=== PATIENT | male | born 1940 | race Caucasian/White ===

== ENCOUNTER → 2018-03-02 | Outpatient (CLI) | payer MEDICARE ==
--- NOTE | 2018-03-02 11:20 | US ---
EXAMINATION TYPE: US duplex aorta DATE OF EXAM: 03/02/2018 COMPARISON: US 2009, MRI Lumbar CLINICAL HISTORY: Z13.9 Encounter for screening, unspecified; controlled HTN; prior CABG EXAM MEASUREMENTS: Abdominal Aorta: Proximal: 2.0cm Transverse Mid: 1.8cm A/P Distal: 4.8cm L x 4.1cm W x 3.4cm H Bifurcation: 1.2cm A/P right DARREN; 1.1cm A/P left DARREN Intimal thickening is noted distal aorta and into left DARREN. Previous ultrasound measurement AP dimension was 2.4 cm in 2009. AP dimension based on the MRI lumbar spine is 3.1 cm 2012. IMPRESSION: 1. Distal abdominal aortic aneurysm slightly increasing with an AP dimension of 3.4 cm and a of width 4.1 cm. This appears to terminate bifurcation.
== END | disposition home or self-care (01) ==
LOC: RADUSWWP 07:38
PROVIDERS: ATTEND Family Medicine
DX: I71.4 Abdominal aortic aneurysm, without rupture (principal)
CPT/HCPCS: 93979

== ENCOUNTER → 2019-01-25 | Outpatient (CLI) | payer MEDICARE ==
--- NOTE | 2019-01-25 09:21 | US ---
EXAMINATION TYPE: US duplex aorta DATE OF EXAM: 01/25/2019 COMPARISON: 11/14/2009 and 03/02/2018 CLINICAL HISTORY: I71.4 AAA. Hx of AAA in distal Aorta. HTN controlled with meds. Hx of open heart surgery. Nonsmoker. Normal cholesterol. EXAM MEASUREMENTS: Abdominal Aorta: Proximal: 2.2 x 2.6 cm Mid: 1.7 x 1.7 cm Distal: 1.4 x 1.8 cm Bifurcation: Right-1.5 x 1.0 Left- 1.5 x 0.8 AAA seen between mid-distal portion of Aorta= 5.1 x 3.9 x 3.3 cm. This previously measured 2.4 cm in anterior posterior dimension 2009 and 3.4 cm in anterior posterior dimension on the exam of 03/02/2018 . IMPRESSION: Distal abdominal aortic aneurysm, stable in size from the prior of 03/02/2018, increased f rom 2009.
== END | disposition home or self-care (01) ==
LOC: RADUSWWP 08:45
PROVIDERS: ATTEND Family Medicine
DX: I71.4 Abdominal aortic aneurysm, without rupture (principal)
CPT/HCPCS: 93979

== ENCOUNTER → 2019-04-21 | Outpatient (CLI) | payer MEDICARE ==
--- NOTE | 2019-04-21 13:49 | CT ---
EXAMINATION TYPE: CT angio abdomen pelvis DATE OF EXAM: 04/21/2019 COMPARISON: Aorta RESULT November 25, 2018 HISTORY: Follow up aneurysm per patient CT DLP: 791.2 mGycm, Automated Exposure Control for Dose Reduction was Utilized. CONTRAST: CTA scan of the abdomen and pelvis is performed with oral and with IV Contrast, patient injected with 100 mL of Isovue 370. Three-D reconstructed images are created by independent workstation and review ed. FINDINGS: VASCULAR: There is a patent celiac artery, SMA, bilateral single renal arteries and GIOVANNY identified. T here is infrarenal abdominal aortic aneurysm over roughly a 4 to 5 cm length measuring 3.8 x 3.7 cm a xial image 47. There is moderate concentric noncalcified plaque along anterior left margin causing shayne men diameter narrowing roughly 35 %. Aneurysm does not extend into iliac arteries. Moderate mixed kellee que extends into common iliac arteries without aneurysmal change. There are patent internal/external iliac arteries without significant plaque or stenosis. There are patent bifurcating superficial and d eep femoral arteries without significant plaque or stenosis. No additional aneurysm is seen. LUNG BASES: No significant abnormality is appreciated. LIVER/GB: Liver is diffusely low-density consistent with fatty infiltration. PANCREAS: No significant abnormality is seen. SPLEEN: No significant abnormality is seen. ADRENALS: No significant abnormality is seen. KIDNEYS: There are few simple appearing thin-walled cysts medially in the left kidney.. BOWEL: Sigmoid colonic diverticulosis. PROSTATE/SEMINAL VESICLES: No gross abnormality seen. LYMPH NODES: No greater than 1cm abdominal or pelvic lymph nodes are appreciated. OSSEOUS STRUCTURES: Moderate disc space narrowing L1-L2 level with mild to moderate anterior and post erior spurring. Posterior spur disc complex effaces anterior thecal sac. OTHER: No significant additional abnormality is seen. IMPRESSION: Confirmation of 3.8 cm aneurysm distal abdominal aorta correlates with recent ultrasound.
== END | disposition home or self-care (01) ==
LOC: RADCTMAIN 10:59
PROVIDERS: ATTEND Surgery
DX: I71.4 Abdominal aortic aneurysm, without rupture (principal)
CPT/HCPCS: 82565; 84520; 36415; 74174; Q9967

== ENCOUNTER → 2019-08-23 | Outpatient (CLI) | payer MEDICARE ==
--- NOTE | 2019-08-23 12:25 | CT ---
EXAMINATION TYPE: CT sinus wo con DATE OF EXAM: 08/23/2019 COMPARISON: None HISTORY: Sinus congestion, drainage and difficulty breathing x several months. CT DLP: [address] of the paranasal sinuses was performed in the axial and coronal planes. Bone and soft tissue settings are submitted. There is moderate mucosal thickening involving the ethmoid air cells and to a lesser extent the maxil lidia sinuses. Frontal sinuses well aerated. Minimal mucosal thickening of the sphenoid sinus. Obstruc tion left sided ostiomeatal unit that with partial obstruction right right-sided ostiomeatal unit. The nasal septum is midline. No bony destructive changes are seen within the field of view. IMPRESSION: Chronic sinusitis as discussed. Underlying polyposis is difficult to exclude. Correlate clinically.
== END ==
LOC: RADCTMAIN 11:54
PROVIDERS: ATTEND Otolaryngology
DX: J32.9 Chronic sinusitis, unspecified (principal)
CPT/HCPCS: 70486

== ENCOUNTER 2021-04-29 13:25 | Emergency (ER) | payer MEDICARE ==
[2021-04-29 13:32] VITALS: TEMP 98.3
--- NOTE | 2021-04-29 13:56 | ED ---
General Adult HPI - General Chief complaint: Dizziness Stated complaint: chest pain Time Seen by Provider: 04/29/21 13:43 Source: patient, RN notes reviewed, old records reviewed Mode of arrival: wheelchair Limitations: no limitations - History of Present Illness Initial comments: 80-year-old male history of coronary artery disease status post CABG presenting with upper back and bilateral arm heaviness and weakness. Patient had 3 separate episodes while golfing when he felt the eye heaviness across his upper back. This was not a pain specifically. He states that it lasted several minutes and improved with rest. No central chest pain. No vomiting or abdominal pain. - Related Data Home Medications Medication Instructions Recorded Confirmed Metoprolol Succinate [Toprol XL] 100 mg PO DAILY 07/03/14 04/29/21 Rosuvastatin Calcium [Crestor] 20 mg PO DAILY 07/03/14 04/29/21 Aspirin EC [Ecotrin Low Dose] 81 mg PO DAILY 04/29/21 04/29/21 Fluticasone Nasal Cisco [Flonase 2 spr EA NOSTRIL DAILY PRN 04/29/21 04/29/21 Nasal Cisco] Nitroglycerin Sl Tabs [Nitrostat] 0.4 mg SL Q5M PRN 04/29/21 04/29/21 Omeprazole 20 mg PO DAILY 04/29/21 04/29/21 amLODIPine [Norvasc] 5 mg PO DAILY 04/29/21 04/29/21 calcium polycarbophiL [Fibercon] 625 mg PO DAILY 04/29/21 04/29/21 Allergies Allergy/AdvReac Type Severity Reaction Status Date / Time cat dander Allergy Allergy Verified 04/29/21 16:15 testing grass pollen Allergy Allergy Verified 04/29/21 16:15 testing tree and shrub pollen Allergy Allergy Verified 04/29/21 16:15 testing Penicillins AdvReac Rash/Hives Verified 04/29/21 16:15 BIRDS Allergy Allergy Uncoded 04/29/21 16:15 testing Review of Systems ROS Statement: Those systems with pertinent positive or pertinent negative responses have been documented in the HPI. ROS Other: All systems not noted in ROS Statement are negative. Past Medical History Past Medical History: GERD/Reflux, Hypertension, Pneumonia Additional Past Medical History / Comment(s): injured left foot- has boot on, hx ulcer, abdominal pain, hx ulcer History of Any Multi-Drug Resistant Organisms: None Reported Past Surgical History: Appendectomy, Coronary Bypass/CABG, Heart Catheterization Additional Past Surgical History / Comment(s): CABG 2001, Past Anesthesia/Blood Transfusion Reactions: No Reported Reaction Past Psychological History: No Psychological Hx Reported Smoking Status: Never smoker Past Alcohol Use History: Rare Past Drug Use History: None Reported - Past Family History Mother Family Medical History: Cancer General Exam Limitations: no limitations General appearance: alert, in no apparent distress Head exam: Present: atraumatic, normocephalic Eye exam: Present: normal appearance, PERRL ENT exam: Present: normal exam Neck exam: Present: normal inspection. Absent: tenderness, meningismus Respiratory exam: Present: normal lung sounds bilaterally. Absent: respiratory distress, wheezes Cardiovascular Exam: Present: regular rate, normal rhythm GI/Abdominal exam: Present: soft, distended. Absent: tenderness, guarding Extremities exam: Present: normal inspection, normal capillary refill. Absent: pedal edema Neurological exam: Present: alert, oriented X3, CN II-XII intact. Absent: motor sensory deficit Psychiatric exam: Present: normal affect, normal mood Skin exam: Present: warm, dry, intact. Absent: cyanosis, diaphoretic Course Vital Signs 04/29/21 04/29/21 04/29/21 13:29 13:46 14:00 Temperature 98.3 F Pulse Rate 64 60 Respiratory 20 44 H 15 Rate Blood Pressure 123/74 114/78 O2 Sat by Pulse 96 96 Oximetry 04/29/21 04/29/21 14:30 15:00 Temperature Pulse Rate 60 Respiratory 12 Rate Blood Pressure 114/78 143/72 O2 Sat by Pulse 97 Oximetry EKG Findings - EKG Comments: EKG Findings:: EKG: Normal sinus rhythm, rate of 61, WA interval 170, QRS duration 90, QTC 380, no ST segment elevation. Medical Decision Making - Medical Decision Making 80-year-old male presenting with an episode of upper back heaviness. Patient was concerned that this may be related to his heart. He had no central chest pain. No vomiting or diaphoresis. He had 3 total episodes prior to arrival. EKG was sinus rhythm without ST segment elevation. I did perform chest x-ray which is negative for you process, head CT negative for intracranial hemorrhage or mass effect. Normal CBC, normal CMP, negative troponin. Given this patient's history I did perform a second troponin in the emergency department at his request. He did not want to be admitted. Second troponin is also negative. He will be discharged with return parameters. If anything should change or worsen he should return to the emergency department. - Lab Data Result diagrams: 04/29/21 14:34 04/29/21 14:34 Lab Results 04/29/21 04/29/21 04/29/21 Range/Units 14:34 14:34 14:34 WBC 8.0 (3.8-10.6) k/uL RBC 5.37 (4.30-5.90) m/uL Hgb 16.2 (13.0-17.5) gm/dL Hct 49.4 (39.0-53.0) % MCV 92.0 (80.0-100.0) fL MCH 30.2 (25.0-35.0) pg MCHC 32.8 (31.0-37.0) g/dL RDW 14.7 (11.5-15.5) % Plt Count 176 (150-450) k/uL MPV 8.4 Neutrophils % 53 % Lymphocytes % 34 % Monocytes % 7 % Eosinophils % 2 % Basophils % 1 % Neutrophils # 4.3 (1.3-7.7) k/uL Lymphocytes # 2.8 (1.0-4.8) k/uL Monocytes # 0.5 (0-1.0) k/uL Eosinophils # 0.2 (0-0.7) k/uL Basophils # 0.1 (0-0.2) k/uL PT 10.6 (9.0-12.0) sec INR 1.0 (<1.2) APTT 23.8 (22.0-30.0) sec Sodium 137 (137-145) mmol/L Potassium 4.8 (3.5-5.1) mmol/L Chloride 104 (98-107) mmol/L Carbon Dioxide 23 (22-30) mmol/L Anion Gap 10 mmol/L BUN 25 H (9-20) mg/dL Creatinine 1.29 H (0.66-1.25) mg/dL Est GFR (CKD-EPI)AfAm 60 (>60 ml/min/1.73 sqM) Est GFR (CKD-EPI)NonAf 52 (>60 ml/min/1.73 sqM) Glucose 105 H (74-99) mg/dL Plasma Lactic Acid Adrian (0.7-2.0) mmol/L Calcium 9.5 (8.4-10.2) mg/dL Magnesium 1.9 (1.6-2.3) mg/dL Total Bilirubin 0.2 (0.2-1.3) mg/dL AST 31 (17-59) U/L ALT 24 (4-49) U/L Alkaline Phosphatase 62 (38-126) U/L Troponin I (0.000-0.034) ng/mL Total Protein 7.4 (6.3-8.2) g/dL Albumin 4.3 (3.5-5.0) g/dL 04/29/21 04/29/21 04/29/21 Range/Units 14:34 14:34 16:00 WBC (3.8-10.6) k/uL RBC (4.30-5.90) m/uL Hgb (13.0-17.5) gm/dL Hct (39.0-53.0) % MCV (80.0-100.0) fL MCH (25.0-35.0) pg MCHC (31.0-37.0) g/dL RDW (11.5-15.5) % Plt Count (150-450) k/uL MPV Neutrophils % % Lymphocytes % % Monocytes % % Eosinophils % % Basophils % % Neutrophils # (1.3-7.7) k/uL Lymphocytes # (1.0-4.8) k/uL Monocytes # (0-1.0) k/uL Eosinophils # (0-0.7) k/uL Basophils # (0-0.2) k/uL PT (9.0-12.0) sec INR (<1.2) APTT (22.0-30.0) sec Sodium (137-145) mmol/L Potassium (3.5-5.1) mmol/L Chloride (98-107) mmol/L Carbon Dioxide (22-30) mmol/L Anion Gap mmol/L BUN (9-20) mg/dL Creatinine (0.66-1.25) mg/dL Est GFR (CKD-EPI)AfAm (>60 ml/min/1.73 sqM) Est GFR (CKD-EPI)NonAf (>60 ml/min/1.73 sqM) Glucose (74-99) mg/dL Plasma Lactic Acid Adrian 1.5 (0.7-2.0) mmol/L Calcium (8.4-10.2) mg/dL Magnesium (1.6-2.3) mg/dL Total Bilirubin (0.2-1.3) mg/dL AST (17-59) U/L ALT (4-49) U/L Alkaline Phosphatase (38-126) U/L Troponin I <0.012 <0.012 (0.000-0.034) ng/mL Total Protein (6.3-8.2) g/dL Albumin (3.5-5.0) g/dL Disposition Clinical Impression: Dehydration Disposition: HOME SELF-CARE Condition: Good Instructions (If sedation given, give patient instructions): Dizziness (ED) Is patient prescribed a controlled substance at d/c from ED?: No Referrals: Delio Pascual MD [Primary Care Provider] - 1-2 days Time of Disposition: 17:21
[2021-04-29 14:49] LABS: Basophils # (A) 0.1 k/uL (0-0.2); Basophils % (A) 1 %; Eosinophils # (A) 0.2 k/uL (0-0.7); Eosinophils % (A) 2 %; HCT 49.4 % (39.0-53.0); HGB 16.2 gm/dL (13.0-17.5); Lymphocytes # (A) 2.8 k/uL (1.0-4.8); Lymphocytes % (A) 34 %; MCH 30.2 pg (25.0-35.0); MCHC 32.8 g/dL (31.0-37.0); Mean Platelet Volume 8.4; Monocytes # (A) 0.5 k/uL (0-1.0); Monocytes % (A) 7 %; Neutrophils # (A) 4.3 k/uL (1.3-7.7); Neutrophils % (A) 53 %; Platelet Count 176 k/uL (150-450); RBC 5.37 m/uL (4.30-5.90); RDW 14.7 % (11.5-15.5)
[2021-04-29 14:52] LABS: Albumin 4.3 g/dL (3.5-5.0); Calcium 9.5 mg/dL (8.4-10.2); Magnesium 1.9 mg/dL (1.6-2.3); Potassium 4.8 mmol/L (3.5-5.1); Total Bilirubin 0.2 mg/dL (0.2-1.3); Total Protein 7.4 g/dL (6.3-8.2)
[2021-04-29 14:57] LABS: Partial Thromboplastin Time 23.8 sec (22.0-30.0); Prothrombin Time 10.6 sec (9.0-12.0)
--- NOTE | 2021-04-29 15:10 | XR ---
EXAMINATION TYPE: XR chest 2V DATE OF EXAM: 04/29/2021 COMPARISON: Chest x-ray November 18, 2012 HISTORY: Weakness. TECHNIQUE: Frontal and lateral views of the chest are obtained. FINDINGS: Post-CABG changes with mediastinal clips and sternal wires is redemonstrated. There is swing grinder williams parenchymal change without suspicious new focal air space opacity, pleural effusion, or pneumotho rax seen. The cardiac silhouette size is stable and within normal limits. The osseous structures a re intact. IMPRESSION: Chronic changes without acute pulmonary process. No significant change from prior.
--- NOTE | 2021-04-29 15:12 | CT ---
EXAMINATION TYPE: CT brain wo con DATE OF EXAM: 04/29/2021 HISTORY: Weakness. CT DLP: 1129.4 mGycm. Automated Exposure Control for Dose Reduction was Utilized. TECHNIQUE: CT scan of the head is performed without contrast. COMPARISON: None. FINDINGS: There is no acute intracranial hemorrhage or midline shift identified. There is mild to m oderate diffuse ventricular and sulcal prominence consistent with diffuse age-related cerebral atroph y greatest over the bilateral frontal lobes. There is mild low-attenuation in the periventricular wh ite matter consistent with chronic small vessel ischemic change. Patchy cerumen in the deep bilateral extra auditory canals. Small mucous retention cyst or polyp in the posterior right maxillary sinus. Dependently in opacity in the inferior bilateral frontal sinuses and anterior ethmoid sinuses could r eflect mucosal thickening, prior paranasal sinus surgical change is present. Globes are intact bilate rally. IMPRESSION: No acute intracranial hemorrhage or midline shift. There is mild to moderate diffuse ce rebral atrophy greatest over bilateral frontal lobes and mild chronic small vessel ischemic change no sumit.
[2021-04-29 17:34] VITALS: BP 140/68; PULSE 62; RESP 16
== END 2021-04-29 17:35 | disposition home or self-care (01) ==
LOC: EC 13:25
DX: E86.0 Dehydration (principal); R07.9 Chest pain, unspecified; R53.1 Weakness; I10 Essential (primary) hypertension; I25.10 Atherosclerotic heart disease of native coronary artery without angina pectoris; I25.810 Atherosclerosis of coronary artery bypass graft(s) without angina pectoris; K21.9 Gastro-esophageal reflux disease without esophagitis; Z95.1 Presence of aortocoronary bypass graft; Z88.0 Allergy status to penicillin; Z79.899 Other long term (current) drug therapy; Z91.09 Other allergy status, other than to drugs and biological substances; Z79.82 Long term (current) use of aspirin
CPT/HCPCS: 36415; 70450; 71046; 80053; 83605; 83735; 84484; 85025; 85610; 85730; 93005; 99285

== ENCOUNTER 2023-10-14 13:04 | Inpatient (IN) | payer MEDICARE ==
--- NOTE | 2023-10-14 13:24 | ED ---
General Adult HPI - General Chief complaint: Neuro Symptoms/Deficit Stated complaint: chest pain/poss stroke Time Seen by Provider: 10/14/23 13:12 Source: patient Mode of arrival: ambulatory Limitations: no limitations - History of Present Illness Initial comments: Dictation was produced using [employer] dictation software. please excuse any grammatical, word or spelling errors. Chief Complaint: 83-year-old male brought in with for strokelike symptoms History of Present Illness: Patient is 83-year-old male presents emergency department for strokelike symptoms she has multiple comorbidities including coronary artery disease, hypertension and pneumonia. For the last 7 to 10 days according to patient has been having strokelike symptoms including left- sided weakness along with left facial droop. Patient states he does have some mild chest pressure that has been ongoing for the last 3 to 4 days. No radiation associated with diaphoresis and nausea however. No other exacerbating or mitigating factors that are obvious. Patient denies any history of stroke. States that he is having difficulty walking and using his left upper extremity. Contacted his primary care doctor who instructed patient come straight to the ER. The ROS documented in this emergency department record has been reviewed and confirmed by me. Those systems with pertinent positive or negative responses have been documented in the HPI. All other systems are other negative and/or noncontributory. - Related Data Home Medications Medication Instructions Recorded Confirmed Metoprolol Succinate [Toprol XL] 100 mg PO DAILY 07/03/14 10/14/23 Rosuvastatin Calcium [Crestor] 20 mg PO DAILY 07/03/14 10/14/23 Fluticasone Nasal [place] [Flonase 1 spr EA NOSTRIL BID 04/29/21 10/14/23 Nasal [place]] Nitroglycerin Sl Tabs [Nitrostat] 0.4 mg SL Q5M PRN 04/29/21 10/14/23 amLODIPine [Norvasc] 5 mg PO DAILY 04/29/21 10/14/23 Ascorbic Acid [Vitamin C] 1,000 mg PO DAILY 10/14/23 10/14/23 Aspirin EC [Ecotrin Low Dose] 81 mg PO DAILY 10/14/23 10/14/23 Cholecalciferol [Vitamin D3 (25 75 mcg PO DAILY 10/14/23 10/14/23 Mcg = 1000 Iu)] Colchicine [Colcrys] 0.6 mg PO DAILY 10/14/23 10/14/23 Multivitamins, Thera [Multivitamin 1 tab PO DAILY 10/14/23 10/14/23 (formulary)] [place]-3/Dha/Epa/Fish Oil [Fish Oil 1 cap PO DAILY 10/14/23 10/14/23 1,000 mg Softgel] Allergies Allergy/AdvReac Type Severity Reaction Status Date / Time cat dander Allergy Allergy Verified 10/14/23 13:58 testing grass pollen Allergy Allergy Verified 10/14/23 13:58 testing tree and shrub pollen Allergy Allergy Verified 10/14/23 13:58 testing Penicillins AdvReac Rash/Hives Verified 10/14/23 13:58 BIRDS Allergy Allergy Uncoded 04/29/21 16:15 testing Review of Systems ROS Statement: Those systems with pertinent positive or pertinent negative responses have been documented in the HPI. ROS Other: All systems not noted in ROS Statement are negative. Past Medical History Past Medical History: Coronary Artery Disease (CAD), GERD/Reflux, Hypertension, Pneumonia Additional Past Medical History / Comment(s): injured left foot- has boot on, hx ulcer, abdominal pain, hx ulcer History of Any Multi-Drug Resistant Organisms: None Reported Past Surgical History: Appendectomy, Coronary Bypass/CABG, Heart Catheterization Additional Past Surgical History / Comment(s): CABG 2001, Past Anesthesia/Blood Transfusion Reactions: No Reported Reaction Past Psychological History: No Psychological Hx Reported Smoking Status: Never smoker Past Alcohol Use History: Rare Past Drug Use History: None Reported - Past Family History Mother Family Medical History: Cancer General Exam - General Exam Comments Initial Comments: PHYSICAL EXAM: General Impression: Alert and oriented x3, not in acute distress HEENT: Normocephalic atraumatic, extra-ocular movements intact, pupils equal and reactive to light bilaterally, mucous membranes moist. Cardiovascular: Heart regular rate and rhythm Chest: Able to complete full sentences, no retractions, no tachypnea Abdomen: abdomen soft, non-tender, non-distended, no organomegaly Musculoskeletal: Pulses present and equal in all extremities, no peripheral edema Motor: no focal deficits noted Neurological: Left facial droop, drift of the left upper extremity and drift of the left lower extremity, sensory changes on the left compared to the right from the lower face to the left lower chest left abdomen and left extremities. NIH score 5 Skin: Intact with no visualized rashes Psych: Normal affect and mood Limitations: no limitations Course Vital Signs 10/14/23 10/14/23 10/14/23 13:07 13:35 14:00 Temperature 98 F Pulse Rate 78 78 75 Respiratory 16 18 18 Rate Blood Pressure 132/80 131/73 124/64 O2 Sat by Pulse 93 L 96 97 Oximetry EKG Findings - EKG Comments: EKG Findings:: My EKG interpretation: Ventricular rate 79, sinus rhythm,. 154, cures 97, QTc 392. No NV prolongation, no QTC prolongation, no ST or T-wave changes noted. Overall, this EKG is unremarkable Medical Decision Making - Medical Decision Making Was pt. sent in by a medical professional or institution (, PA, HEAVY TRUCK MECHANIC, urgent care, hospital, or alf...) When possible be specific @ -No Did you speak to anyone other than the patient for history (EMS, parent, family, police, friend...)? What history was obtained from this source @ -Some history obtained from at the bedside as stated above Did you review nursing and triage notes (agree or disagree)? Why? @ -I reviewed and agree with nursing and triage notes Were old charts reviewed (outside hosp., previous admission, EMS record, old EKG, old radiological studies, urgent care reports/EKG's, alf records)? Report findings @ -No old charts were reviewed Differential Diagnosis (chest pain, altered mental status, abdominal pain women, abdominal pain men, vaginal bleeding, musculoskeletal, weakness, fever, dyspnea, syncope, headache, dizziness, GI bleed, back pain, seizure, CVA, palpatations, mental health)? @ - Differential CVA: Ischemic stroke, hemorrhagic stroke, brain tumor, atypical migraine, Wernicke's encephalopathy, seizure, multiple sclerosis, meningitis, encephalitis, hypoglycemia, Guillain-Mccain, electrolytes disturbance, myasthenia gravis.... This is not meant to be an all-inclusive list EKG interpreted by me (3pts min.). @ -See above X-rays interpreted by me (1pt min.). @ -Chest x-ray is nonacute. CT interpreted by me (1pt min.). @ -CT brain is unremarkable. CT angiography head and neck is negative. U/S interpreted by me (1pt. min.). @ -None done What testing was considered but not performed or refused? (CT, X-rays, U/S, l abs)? Why? @ -None What meds were considered but not given or refused? Why? @ -None Did you discuss the management of the patient with other professionals (professionals i.e. , PA, HEAVY TRUCK MECHANIC, lab, RT, psych nurse, social worker palliative care, recreation facility manager, teacher, second officer, manager case management)? Give summary @ -Case discussed with hospitalist for admission Was smoking cessation discussed for >3mins.? @ -No Was critical care preformed (if so, how long)? @ -No Were there social determinants of health that impacted care today? How? (Homelessness, low income, unemployed, alcoholism, drug addiction, transportation, low edu. Level, literacy, decrease access to med. care, long-term, rehab)? @ -No Was there de-escalation of care discussed even if they declined (Discuss DNR or withdrawal of care, Hospice)? DNR status @ -No What co-morbidities impacted this encounter? (DM, HTN, Smoking, COPD, CAD, Cancer, CVA, ARF, Chemo, Hep., AIDS, mental health diagnosis, sleep apnea, morbid obesity)? @ -None Was patient admitted / discharged? Hospital course, mention meds given and route, prescriptions, significant lab abnormalities, going to OR and other pertinent info. @ -83-year-old male presents to the emergency department for strokelike symptoms. His symptoms have been ongoing for approximately 1 week. Patient also has chest pain. Vital signs upon arrival are within acceptable limits. Patient is no acute distress. Patient has strokelike symptoms affecting the left side. He also complains of atypical chest pain typical features. Labs unremarkable. Troponin is negative. Imaging studies negative. Patient given aspirin will be admitted for inpatient stroke workup and management. Undiagnosed new problem with uncertain prognosis? @ -No Drug Therapy requiring intensive monitoring for toxicity (Heparin, Nitro, Insulin, Cardizem)? @ -No Were any procedures done? @ -No Diagnosis/symptom? Acute, or Chronic, or Acute on Chronic? Uncomplicated (without systemic symptoms) or Complicated (systemic symptoms)? @ -CVA Side effects of treatment? @ -No Exacerbation, Progression, or Severe Exacerbation? @ -No Poses a threat to life or bodily function? How? (Chest pain, [place], ID, pneumonia, PE, COPD, DKA, ARF, appy, cholecystitis, CVA, Diverticulitis, Homicidal, Suicidal, threat to staff... and all critical care pts) @ -yes - Lab Data Result diagrams: 10/14/23 13:25 10/14/23 13:25 Lab Results 10/14/23 10/14/23 10/14/23 Range/Units 13:25 13:25 13:25 WBC 8.6 (3.8-10.6) k/uL RBC 5.49 (4.30-5.90) m/uL Hgb 16.2 (13.0-17.5) gm/dL Hct 49.8 (39.0-53.0) % MCV 90.7 (80.0-100.0) fL MCH 29.5 (25.0-35.0) pg MCHC 32.5 (31.0-37.0) g/dL RDW 14.6 (11.5-15.5) % Plt Count 170 (150-450) k/uL MPV 7.8 Neutrophils % 65 % Lymphocytes % 26 % Monocytes % 5 % Eosinophils % 2 % Basophils % 1 % Neutrophils # 5.6 (1.3-7.7) k/uL Lymphocytes # 2.2 (1.0-4.8) k/uL Monocytes # 0.4 (0-1.0) k/uL Eosinophils # 0.1 (0-0.7) k/uL Basophils # 0.1 (0-0.2) k/uL PT 11.3 (10.0-12.5) sec INR 1.0 (<1.2) APTT 24.2 (22.0-30.0) sec Sodium 140 (137-145) mmol/L Potassium 4.3 (3.5-5.1) mmol/L Chloride 107 (98-107) mmol/L Carbon Dioxide 25 (22-30) mmol/L Anion Gap 8 mmol/L BUN 26 H (9-20) mg/dL Creatinine 1.14 (0.66-1.25) mg/dL Est GFR (CKD-EPI)AfAm 69 (>60 ml/min/1.73 sqM) Est GFR (CKD-EPI)NonAf 60 (>60 ml/min/1.73 sqM) Glucose 152 H (74-99) mg/dL Calcium 9.4 (8.4-10.2) mg/dL Total Bilirubin 0.4 (0.2-1.3) mg/dL AST 33 (17-59) U/L ALT 29 (4-49) U/L Alkaline Phosphatase 60 (38-126) U/L Creatine Kinase 144 (55-170) U/L Troponin I (0.000-0.034) ng/mL Total Protein 7.8 (6.3-8.2) g/dL Albumin 4.1 (3.5-5.0) g/dL 10/14/23 Range/Units 13:25 WBC (3.8-10.6) k/uL RBC (4.30-5.90) m/uL Hgb (13.0-17.5) gm/dL Hct (39.0-53.0) % MCV (80.0-100.0) fL MCH (25.0-35.0) pg MCHC (31.0-37.0) g/dL RDW (11.5-15.5) % Plt Count (150-450) k/uL MPV Neutrophils % % Lymphocytes % % Monocytes % % Eosinophils % % Basophils % % Neutrophils # (1.3-7.7) k/uL Lymphocytes # (1.0-4.8) k/uL Monocytes # (0-1.0) k/uL Eosinophils # (0-0.7) k/uL Basophils # (0-0.2) k/uL PT (10.0-12.5) sec INR (<1.2) APTT (22.0-30.0) sec Sodium (137-145) mmol/L Potassium (3.5-5.1) mmol/L Chloride (98-107) mmol/L Carbon Dioxide (22-30) mmol/L Anion Gap mmol/L BUN (9-20) mg/dL Creatinine (0.66-1.25) mg/dL Est GFR (CKD-EPI)AfAm (>60 ml/min/1.73 sqM) Est GFR (CKD-EPI)NonAf (>60 ml/min/1.73 sqM) Glucose (74-99) mg/dL Calcium (8.4-10.2) mg/dL Total Bilirubin (0.2-1.3) mg/dL AST (17-59) U/L ALT (4-49) U/L Alkaline Phosphatase (38-126) U/L Creatine Kinase (55-170) U/L Troponin I <0.012 (0.000-0.034) ng/mL Total Protein (6.3-8.2) g/dL Albumin (3.5-5.0) g/dL Disposition Clinical Impression: Cerebrovascular accident (CVA) Disposition: ADMITTED IP TO THIS HOSP Condition: Fair Referrals: Delio Pascual MD [Primary Care Provider] - 1-2 days Decision Time: 15:01
[2023-10-14 13:44] LABS: Basophils # (A) 0.1 k/uL (0-0.2); Basophils % (A) 1 %; Eosinophils # (A) 0.1 k/uL (0-0.7); Eosinophils % (A) 2 %; HCT 49.8 % (39.0-53.0); HGB 16.2 gm/dL (13.0-17.5); Lymphocytes # (A) 2.2 k/uL (1.0-4.8); Lymphocytes % (A) 26 %; MCH 29.5 pg (25.0-35.0); MCHC 32.5 g/dL (31.0-37.0); MCV 90.7 fL (80.0-100.0); Mean Platelet Volume 7.8; Monocytes # (A) 0.4 k/uL (0-1.0); Monocytes % (A) 5 %; Neutrophils # (A) 5.6 k/uL (1.3-7.7); Neutrophils % (A) 65 %; Platelet Count 170 k/uL (150-450); RBC 5.49 m/uL (4.30-5.90); RDW 14.6 % (11.5-15.5); WBC 8.6 k/uL (3.8-10.6)
[2023-10-14 13:46] LABS: Partial Thromboplastin Time 24.2 sec (22.0-30.0); Prothrombin Time 11.3 sec (10.0-12.5)
[2023-10-14 13:58] LABS: ALT 29 U/L (4-49); AST 33 U/L (17-59); African American GFR (CKD) 69 (>60 ml/min/1.73 sqM); Albumin 4.1 g/dL (3.5-5.0); Alkaline Phosphatase 60 U/L (38-126); Anion Gap 8 mmol/L; Blood Urea Nitrogen 26 mg/dL (9-20); Calcium 9.4 mg/dL (8.4-10.2); Carbon Dioxide 25 mmol/L (22-30); Chloride 107 mmol/L (98-107); Creatine Kinase 144 U/L (55-170); Glucose 152 mg/dL (74-99); Non-African American GFR(CKD) 60 (>60 ml/min/1.73 sqM); Potassium 4.3 mmol/L (3.5-5.1); Sodium 140 mmol/L (137-145); Total Bilirubin 0.4 mg/dL (0.2-1.3); Total Protein 7.8 g/dL (6.3-8.2)
--- NOTE | 2023-10-14 14:51 | CT ---
EXAMINATION TYPE: CT brain wo con DATE OF EXAM: 10/14/2023 COMPARISON: 04/29/2021 INDICATION: left sided weakness DLP: 1091.5 mGycm, Automated exposure control for dose reduction was used. CONTRAST: None CT of the brain is performed utilizing 3 mm thick sections through the posterior fossa and 3 mm thick sections through the remaining calvarium. Study is performed within 24 hours of arrival to the hosp ital. No abnormal hyperdensity is present to suggest an acute intracranial hemorrhage. No mass lesion is evident. No acute infarcts are evident. Diffuse patchy low densities within the right ventricular white matter . Ventricles and sulci are prominent for the patient age. Paranasal sinuses and mastoid air cells within the [id number] are clear. IMPRESSION: 1. Atrophy with chronic appearing periventricular white matter ischemic changes. Findings appear pr ogressive from the comparison of 2020. 2. No acute intracranial changes radiographically apparent. Follow-up MRI can be performed as clinica lly indicated.
--- NOTE | 2023-10-14 14:55 | CT ---
EXAMINATION TYPE: CT angio head neck DATE OF EXAM: 10/14/2023 HISTORY: left sided weakness COMPARISON: None CT DLP: 585.6 mGycm. Automated Exposure Control for Dose Reduction was Utilized. TECHNIQUE: CTA scan of the neck is performed with IV Contrast, patient injected with 65 mL of Isovue 370, axial images are obtained, coronal and sagittal reformatted images are reviewed. Three-D recons tructed images are created on an independent workstation and reviewed. Source images are reviewed. FINDINGS: Carotid/Vascular Structures: There is a 3 vessel arch. Common carotid arteries bifurcate into internal and external carotid arteries without significant elvie w limiting stenosis. Tortuosity is noted more so on the right internal carotid artery. Right vertebral artery is dominant.. Internal carotid arteries and vertebral arteries are patent to the skull base. Cervical of [place]: Vertebral basilar system appears normal. Posterior cerebral vasculature is unrema rkable. Internal carotid arteries bifurcate normally into A1 and M1 segments. A2 segments are normal. The anterior communicating artery is not clearly identified.. The right posterior communicating artery is patent. The left posterior communicating artery is absent. IMPRESSION: 1. No flow-limiting stenosis bilateral carotid bifurcations. 2. Normal [place] of [place] NASCET criteria was used in interpretation of this exam?
[2023-10-14] MEDS ORDERED: ASPIRIN 81 MG PO STA (14:58)
[2023-10-14] MEDS ORDERED: NALOXONE 0.4 MG/ML 1 ML VIAL IV PRN (15:01)
--- NOTE | 2023-10-14 15:24 | XR ---
EXAMINATION TYPE: XR chest 2V DATE OF EXAM: 10/14/2023 COMPARISON: 04/29/2021 HISTORY: 83-year-old male confusion, altered mental status TECHNIQUE: AP and lateral views FINDINGS: Median sternotomy wires are present with post-CABG clips. Heart upper limits of normal in size. Inter stitial prominence has a chronic appearance. Hazy densities relating to body habitus. No consolidatio n or pleural effusion. IMPRESSION: Chronic changes. No acute process seen. Post-CABG clips.
[2023-10-14] MEDS: SODIUM CHLORIDE 0.9% 1,000 ML IV SCH (15:42)
--- NOTE | 2023-10-14 17:22 | P.HPIM ---
History of Present Illness H&P Date: 10/14/23 Patient is a 83-year-old male with history of CAD status post CABG, hypertension, dyslipidemia, former smoker, gout presenting with 2 weeks of left- sided weakness. He claims that he had sudden onset left-sided facial droop, slurring of words, left-sided upper and lower extremity weakness that started 2 weeks ago. He did not present to the hospital at that time. He had difficulty getting out of the bed. He lives with his at the moment. His weakness was improving, but it worsened yesterday which prompted him to come to the hospital. He denies any chest pain, abdominal pain, nausea, vomiting, palpitations, urinary or bowel complaints. He denies any fevers or chills, or any travel hi story. He is a former smoker, denies any significant alcohol use or illicit drug use. In the ED, temperature was 98, pulse 78, respiratory 16, blood pressure 132/80, saturating at 93% on room air. Chest x-ray independently interpreted, showed no opacities. EKG independently interpreted, shows normal sinus rhythm. CT head showed atrophy with chronic appearing periventricular white matter ischemic changes, no acute intracranial process noted. CT angiography did not show any flow-limiting stenosis. Patient admitted for acute/subacute CVA with left-sided deficits. Neurology consulted. Pertinent positives and negatives as discussed in HPI, a complete review of systems was performed and all other systems are negative. Patient seen and examined at bedside. Vital signs reviewed General: nontoxic, no distress, appears at stated age, obese Derm: warm, dry Head: atraumatic, normocephalic, symmetric Eyes: EOMI, no lid lag, anicteric sclera, pupils equal round reactive to light ENT: Nose and ears atraumatic Neck: No thyromegaly, supple Mouth: no lip lesion, mucus membranes moist Cardiovascular: S1S2 reg, no murmur, no edema Lungs: clear to auscultation bilateral, no rhonchi, no rales, no wheeze, no accessory muscle use Abdominal: soft, nontender to palpation, no guarding, no appreciable organomegaly Ext: no gross muscle atrophy Neuro: Left-sided sided facial droop, left upper and lower extremity strength 4/5 Psych: Alert, oriented, appropriate affect Assessment/Plan: Acute/subacute CVA with left-sided deficits Hypertension Dyslipidemia History of CAD status post CABG Former smoker Gout -Continue aspirin 81 mg, rosuvastatin 20 mg -Neurochecks -Continuous telemetry -MRI brain ordered, echocardiogram with bubble study ordered -A1c, TSH, B12, lipid panel ordered -Holding amlodipine, permissive hypertension for the next 24 to 48 hours -Neurology consulted, pending recommendations -Continue home colchicine -PT/OT/speech therapy The patient is admitted with an anticipated greater than 2 midnight stay as inpatient status for evaluation of stroke. Surrogate decision-maker: CODE STATUS: Full code DVT prophylaxis: Lovenox Anticipated discharge date: Pending clinical course Anticipated discharge place: Pending clinical course A total of 65 minutes was spent on the care of this complex patient more than 50% of the time was spent in counseling and care coordination. Past Medical History Past Medical History: Coronary Artery Disease (CAD), GERD/Reflux, Hypertension, Pneumonia Additional Past Medical History / Comment(s): injured left foot- has boot on, hx ulcer, abdominal pain, hx ulcer History of Any Multi-Drug Resistant Organisms: None Reported Past Surgical History: Appendectomy, Coronary Bypass/CABG, Heart Catheterization Additional Past Surgical History / Comment(s): CABG 2001, Past Anesthesia/Blood Transfusion Reactions: No Reported Reaction Past Psychological History: No Psychological Hx Reported Smoking Status: Never smoker Past Alcohol Use History: Rare Past Drug Use History: None Reported - Past Family History Mother Family Medical History: Cancer Medications and Allergies Home Medications Medication Instructions Recorded Confirmed Type Metoprolol Succinate [Toprol XL] 100 mg PO DAILY 07/03/14 10/14/23 History Rosuvastatin Calcium [Crestor] 20 mg PO DAILY 07/03/14 10/14/23 History Fluticasone Nasal [place] [Flonase 1 spr EA NOSTRIL BID 04/29/21 10/14/23 History Nasal [place]] Nitroglycerin Sl Tabs [Nitrostat] 0.4 mg SL Q5M PRN 04/29/21 10/14/23 History amLODIPine [Norvasc] 5 mg PO DAILY 04/29/21 10/14/23 History Ascorbic Acid [Vitamin C] 1,000 mg PO DAILY 10/14/23 10/14/23 History Aspirin EC [Ecotrin Low Dose] 81 mg PO DAILY 10/14/23 10/14/23 History Cholecalciferol [Vitamin D3 (25 75 mcg PO DAILY 10/14/23 10/14/23 History Mcg = 1000 Iu)] Colchicine [Colcrys] 0.6 mg PO DAILY 10/14/23 10/14/23 History Multivitamins, Thera [Multivitamin 1 tab PO DAILY 10/14/23 10/14/23 History (formulary)] [place]-3/Dha/Epa/Fish Oil [Fish Oil 1 cap PO DAILY 10/14/23 10/14/23 History 1,000 mg Softgel] Allergies Allergy/AdvReac Type Severity Reaction Status Date / Time cat dander Allergy Allergy Verified 10/14/23 13:58 testing grass pollen Allergy Allergy Verified 10/14/23 13:58 testing tree and shrub pollen Allergy Allergy Verified 10/14/23 13:58 testing Penicillins AdvReac Rash/Hives Verified 10/14/23 13:58 BIRDS Allergy Allergy Uncoded 04/29/21 16:15 testing Physical Exam Vitals: Vital Signs Temp Pulse Resp BP Pulse Ox 10/14/23 14:00 75 18 124/64 97 10/14/23 13:35 78 18 131/73 96 10/14/23 13:07 98 F 78 16 132/80 93 L Intake and Output 10/14/23 10/14/23 10/14/23 06:59 14:59 22:59 Other: Weight 99.79 kg Results CBC & Chem 7: 10/14/23 13:25 10/14/23 13:25 Labs: Abnormal Lab Results - Last 24 Hours (Table) 10/14/23 Range/Units 13:25 BUN 26 H (9-20) mg/dL Glucose 152 H (74-99) mg/dL
[2023-10-15] MEDS: METOPROLOL SUCCINATE (ER) 100 MG TAB.ER.24H PO SCH (08:24)
[2023-10-15] MEDS: MULTIVITAMINS, THERA 1 EACH TAB PO SCH (08:24)
[2023-10-15] MEDS: ASPIRIN 81 MG PO SCH (08:24)
[2023-10-15] MEDS: ATORVASTATIN 40 MG TAB PO SCH (08:24)
[2023-10-15] MEDS: COLCHICINE 0.6 MG EACH PO SCH (08:40)
[2023-10-15] MEDS: NON FORMULARY DRUG (Omega-3/Dha/Epa/Fish Oil [Fish Oil 1,000 Mg Softgel] 1 EACH Capsule) PO SCH (08:41)
[2023-10-15 12:05] LABS: Chol/HDL Ratio 3.09 Ratio; LDL Cholesterol,Calculated 52.1 mg/dL (0.0-131.0)
--- NOTE | 2023-10-15 12:41 | P.CNNES ---
History of Present Illness Consult date: 10/15/23 Requesting physician: Néstor Carpenter Reason for Consult: cva History of Present Illness: This is a 83-year-old gentleman who presented emergency department because of left-sided weakness. Patient stated that his left upper and lower extremity weakness began about 2 weeks ago and felt progressively worse about 2 days ago. Initially he stated that he did have the left facial droop then upon asking the same question the later he stated no. He does have numbness over the left side. He had denies of any visual disturbance. He stated that he might had some slurring the speech. He stated that that he did not come to the hospital because his symptoms weren't not as drastic and the beginning but it seems 2 days ago was getting worse. He denies any history of stroke. He states that he is taking aspirin. Denies of any A. fib or flutter. Some of the workup during his hospital visit consisted of: Vital B12 is 429 TSH is 3.24 on Hemoglobin A1c is 5.8 Sodium is 140, calcium is 9.4, CK level is 144 Lipid panel triglycerides are 125, cholesterol 114, LDL is 52 and HDL is 36. CT of the head is reported as atrophy with chronic appearing periventricular white matter ischemic change. Finding appear progressive from the comparison of 2020. No acute intracranial change radiographically apparent. Follow-up MRI can be performed as clinically indicated. I personally reviewed the CT of the head and I agree with the report. CTA head and neck: No flow limiting stenosis bilateral carotid bifurcation. Normal [facility] [place]. I personally reviewed the image and I felt there is a hyperintense in the cervical spine on the sagittal view around C4 and I'm not sure if this was artifact vs cervical lesion/myelomalacia. But feel more artifact since there is line going across it to his neck. Review of Systems The positive and negative as per HPI. Past Medical History Past Medical History: Coronary Artery Disease (CAD), GERD/Reflux, Hypertension, Pneumonia Additional Past Medical History / Comment(s): injured left foot- has boot on, hx ulcer, abdominal pain, hx ulcer History of Any Multi-Drug Resistant Organisms: None Reported Past Surgical History: Appendectomy, Coronary Bypass/CABG, Heart Catheterization Additional Past Surgical History / Comment(s): CABG 2001, Past Anesthesia/Blood Transfusion Reactions: No Reported Reaction Past Psychological History: No Psychological Hx Reported Smoking Status: Never smoker Past Alcohol Use History: Rare Past Drug Use History: None Reported - Past Family History Mother Family Medical History: Cancer Medications and Allergies Home Medications Medication Instructions Recorded Confirmed Type Metoprolol Succinate [Toprol XL] 100 mg PO DAILY 07/03/14 10/14/23 History Rosuvastatin Calcium [Crestor] 20 mg PO DAILY 07/03/14 10/14/23 History Fluticasone Nasal [place] [Flonase 1 spr EA NOSTRIL BID 04/29/21 10/14/23 History Nasal [place]] Nitroglycerin Sl Tabs [Nitrostat] 0.4 mg SL Q5M PRN 04/29/21 10/14/23 History amLODIPine [Norvasc] 5 mg PO DAILY 04/29/21 10/14/23 History Ascorbic Acid [Vitamin C] 1,000 mg PO DAILY 10/14/23 10/14/23 History Aspirin EC [Ecotrin Low Dose] 81 mg PO DAILY 10/14/23 10/14/23 History Cholecalciferol [Vitamin D3 (25 75 mcg PO DAILY 10/14/23 10/14/23 History Mcg = 1000 Iu)] Colchicine [Colcrys] 0.6 mg PO DAILY 10/14/23 10/14/23 History Multivitamins, Thera [Multivitamin 1 tab PO DAILY 10/14/23 10/14/23 History (formulary)] [place]-3/Dha/Epa/Fish Oil [Fish Oil 1 cap PO DAILY 10/14/23 10/14/23 History 1,000 mg Softgel] Allergies Allergy/AdvReac Type Severity Reaction Status Date / Time cat dander Allergy Allergy Verified 10/14/23 13:58 testing grass pollen Allergy Allergy Verified 10/14/23 13:58 testing tree and shrub pollen Allergy Allergy Verified 10/14/23 13:58 testing Penicillins AdvReac Rash/Hives Verified 10/14/23 13:58 BIRDS Allergy Allergy Uncoded 04/29/21 16:15 testing Physical Examination - Vital Signs Vital Signs: Vital Signs Temp Pulse Resp BP Pulse Ox 10/15/23 11:06 60 16 128/82 94 L 10/15/23 10:44 98.0 F 62 18 128/82 95 10/15/23 10:06 70 18 95 02/02/24 09:06 64 18 97 10/15/23 08:20 98.1 F 61 18 148/84 97 10/15/23 08:06 73 18 140/73 98 10/15/23 06:01 67 16 131/90 95 10/15/23 05:32 73 16 112/60 95 10/15/23 00:45 60 16 134/79 95 10/15/23 00:18 64 16 134/79 96 10/14/23 22:32 66 16 127/76 95 10/14/23 20:00 65 16 145/84 95 10/14/23 19:16 68 16 137/107 95 10/14/23 18:00 65 18 113/99 96 10/14/23 17:00 61 18 127/73 96 10/14/23 16:00 64 18 114/60 96 10/14/23 14:00 75 18 124/64 97 10/14/23 13:35 78 18 131/73 96 10/14/23 13:07 98 F 78 16 132/80 93 L GENERAL: The patient is sitting up in chair and is not in acute distress. HENT: Supple NEUROLOGICAL: Higher mental function: The patient is awake, alert, oriented to self, place and time. Patient is following commands. No aphasia and no neglect. Cranial nerves: The pupils are round, equal and reactive to light and accommodation. Visual [place] are full to confrontation throughout. Extraocular movement is intact no nystagmus is noted. Facial sensation is normal to touch throughout. The facial strength is normal throughout. Hearing is normal bilaterally to hand rub. Tongue is midline and moved [id number] without any difficulty. No dysarthria is noted. Shoulder shrug is normal bilaterally. Motor: The strength is left upper and lower extremity is 4 and has pronator drift over the left upper and drift low. Otherwise 5 over 5 throughout right. Normal tone and bulk. Cerebellum: Normal finger to nose bilaterally. Sensation: Decrease sensation to touch over the left side. Reflexes (right/left): 2+ throughout except ankle are 1+ Plantars are mute bilaterally. Results - Laboratory Findings CBC and BMP: 10/14/23 13:25 10/14/23 13:25 Abnormal Lab Findings: Abnormal Labs 10/14/23 10/15/23 13:25 06:09 BUN 26 H Glucose 152 H HDL Cholesterol 36.90 L Assessment and Plan Assessment: This is an 83-year-old gentleman who has been having weakness of the left upper and lower extremity and the questionable episode of left facial weakness and dysarthria in which about 2 weeks ago he felt his symptoms were worse. So far CT of the head CT angiography of the head and neck is negative for any acute process. I felt there is a questionable bright signal in the sagittal cervical but I felt was likely artifact Left hemiparesis with questionable dysarthria and facial weakness rule out subacute ischemic stroke. By this time I would expect if it's the moderate or large size stroke the CT will be visible for stroke especially since has symptoms for [address] was unremarkable. Rule out small size stroke or lacunar stroke. Also rule out any cervical lesion Plan: Patient is on aspirin 81 mg daily. We'll hold off dual antiplatelet until MRI results. Continue Lipitor 40 mg daily. MRI the brain is ordered and is pending I ordered MRI cervical spine stat. If he has any significant cervical lesion/myelopathy recommend consult Orthopedic stat. 2-D echo is ordered and is pending Continue neuro checks Cardiac monitoring PT OT and VARNISH COOKER are consulted We'll defer the rest of the medical management to primary team. For DVT prophylaxis will use SCDs for now I told the MRI of the cervical spine rules out any bleed. Plan discussed with the patient and the primary attending Thank you for the consultation Time with Patient: Greater than 30
--- NOTE | 2023-10-15 14:48 | P.PN ---
Subjective Progress Note Date: 10/15/23 Hospital Course: 83-year-old male with history of CAD status post CABG, hypertension, dyslipidemia, former smoker, gout presenting with 2 weeks of left-sided weakness. In the ED, temperature was 98, pulse 78, respiratory 16, blood pressure 132/80, saturating at 93% on room air. Chest x-ray independently interpreted, showed no opacities. EKG independently interpreted, shows normal sinus rhythm. CT head showed atrophy with chronic appearing periventricular white matter ischemic changes, no acute intracranial process noted. CT angiography did not show any flow-limiting stenosis. Patient admitted for acute/subacute CVA with left-sided deficits. Neurology consulted. Subjective: Patient seen and examined at bedside. No acute events overnight. No new changes. Pertinent positives and negatives as discussed above, a complete review of systems was performed and all other systems are negative. Vitals Signs Reviewed. General: nontoxic, no distress, appears at stated age, obese Derm: warm, dry Head: atraumatic, normocephalic, symmetric Eyes: EOMI, no lid lag, anicteric sclera, pupils equal round reactive to light ENT: Nose and ears atraumatic Neck: No thyromegaly, supple Mouth: no lip lesion, mucus membranes moist Cardiovascular: S1S2 reg, no murmur, no edema Lungs: clear to auscultation bilateral, no rhonchi, no rales, no wheeze, no accessory muscle use Abdominal: soft, nontender to palpation, no guarding, no appreciable organomegaly Ext: no gross muscle atrophy Neuro: Left-sided sided facial droop, left upper and lower extremity strength 4/5 Psych: Alert, oriented, appropriate affect Data Reviewed Today: Pertinent Labs: A1c 5.8, total cholesterol 114, LDL 52, TSH 3.24, B12 429. Imaging: No new imaging Assessment and Plan: Acute/subacute CVA with left-sided deficits Hypertension Dyslipidemia History of CAD status post CABG Former smoker Gout -Discussed management with neurology, concern for possible cervical spine lesion, MRI cervical spine also added along with MRI brain, hold off any dual antiplatelet, continue aspirin 81 mg and Lipitor 40 mg daily -Neurochecks -Continuous telemetry -MRI brain ordered, echocardiogram with bubble study ordered -Holding amlodipine, permissive hypertension for the next 24 to 48 hours -Continue home colchicine -PT/OT/speech therapy DVT ppx: Lovenox 40 Code status: Full code Anticipated discharge place: Pending clinical course Anticipated discharge time: Pending clinical course Objective - Vital Signs Vital signs: Vital Signs Temp 98.0 F 10/15/23 10:44 Pulse 81 10/15/23 13:06 Resp 14 10/15/23 13:06 BP 127/83 10/15/23 13:06 Pulse Ox 96 10/15/23 13:06 FiO2 Intake & Output 10/14/23 10/15/23 10/15/23 18:59 06:59 18:59 Weight 99.79 kg - Labs CBC & Chem 7: 10/14/23 13:25 10/14/23 13:25 Labs: Abnormal Lab Results - Last 24 Hours (Table) 10/15/23 Range/Units 06:09 HDL Cholesterol 36.90 L (40.00-60.00) mg/dL
[2023-10-15] MEDS: SODIUM CHLORIDE 0.9% 1,000 ML IV SCH (14:56)
--- NOTE | 2023-10-15 17:10 | MR ---
EXAMINATION TYPE: MR brain wo cspine wo/w DATE OF EXAM: 10/15/2023 4:29 PM COMPARISON: NONE HISTORY: Left sided weakness CONTRAST: Patient received 10 mL intravenous Gadavist gadolinium contrast. Multiplanar and multispin-echo imaging of the brain was performed . Pre and post contrast enhanced i mages are obtained. The ventricles, basal cisterns and sulci overlying the cerebral convexities are mildly enlarged. There is evidence of mild to moderate periventricular white matter ischemic demyelination. Remote deep white matter insults are also noted. No acute edema is seen on diffusion weighted imaging. There is no evidence for midline shift or mass effect. Acute intracranial hemorrhage or extra-axial collection is not evident. No enhancing lesions are seen. The paranasal sinuses and mastoid air cells are well-aerated. IMPRESSION: Age-related atrophic and chronic small vessel ischemic change. No acute intracranial process at this time. No enhancing lesions are seen. EXAMINATION TYPE: MR brain wo cspine wo/w DATE OF EXAM: 10/15/2023 4:29 PM COMPARISON: NONE HISTORY: Left sided weakness CONTRAST: The patient was injected with 10 mL intravenous Gadavist gadolinium contrast. Multiplanar MultiSpin echo imaging of the cervical spine was performed. C2-C3: No evidence for degenerative disc disease. No disc bulge/herniation or protrusion. No Canal stenosis. Foramina are patent bilaterally. C3-C4: Mild disc desiccation with posterior disc bulge. Effacement of ventral thecal sac. Moderate na rrowing right neural foramen and mild narrowing left neural foramen. No evidence for central stenosis or disc herniation. C4-C5: Moderate disc desiccation of moderate broad-based posterior disc bulge. Posterior disc bulge w hich results in [id number] central stenosis. Bilateral right greater than left neural foraminal encroachment. C5-C6: Moderate disc desiccation of moderate broad-based posterior disc bulge. Posterior disc bulge w hich results in [id number] central stenosis. Bilateral right greater than left neural foraminal encroachment. C6-C7:Mild disc desiccation with posterior disc bulge. Effacement of ventral thecal sac. Moderate elizabeth rowing right neural foramen and mild narrowing left neural foramen. No evidence for central stenosis or disc herniation. C7-T1: No evidence for degenerative disc disease. No disc bulge/herniation or protrusion. No Canal stenosis. Foramina are patent bilaterally. No cervical spine fracture. There is normal alignment. Cervical spinal cord is of normal signal. C raniovertebral junction relationships are within normal limits. No pathologic enhancement. IMPRESSION: 1. Multilevel degenerative disc disease. 2.. Central stenosis and neural foraminal encroachment as outlined above.
[2023-10-16] MEDS: ATORVASTATIN 40 MG TAB PO SCH (10:07)
[2023-10-16] MEDS: amLODIPine 5 MG TAB PO SCH (10:07)
[2023-10-16] MEDS: METOPROLOL SUCCINATE (ER) 100 MG TAB.ER.24H PO SCH (10:07)
[2023-10-16] MEDS: ASPIRIN 81 MG PO SCH (10:07)
[2023-10-16] MEDS: MULTIVITAMINS, THERA 1 EACH TAB PO SCH (10:08)
[2023-10-16] MEDS: ENOXAPARIN 40 MG/0.4 ML SYRINGE SQ SCH (10:08)
[2023-10-16] MEDS: NON FORMULARY DRUG (Omega-3/Dha/Epa/Fish Oil [Fish Oil 1,000 Mg Softgel] 1 EACH Capsule) PO SCH (10:08)
[2023-10-16] MEDS: COLCHICINE 0.6 MG EACH PO SCH (10:08)
--- NOTE | 2023-10-16 11:50 | CA ---
Transthoracic Echo Report Name: Woodrow Madera Age: 83 Gender: M : 1940 Exam Date: 10/16/2023 08:03 Exam Location: [place] [facility] Ht (in): 68 Wt (lb): 220 Ordering Physician: Chaitanya Robbins MD Attending/Referring Phys: [employer] Operator Helper Jolly Villanueva RDCS Procedure CPT: Indications: stroke Cardiac Hx: Technical Quality: Technically difficult study Contrast 1: Definity Total Dose (mL): 2 Contrast 2: Total Dose (mL): MEASUREMENTS (Male / Female) Normal Values 2D ECHO LV Diastolic Diameter PLAX 3.3 cm 4.2 - 5.9 / 3.9 - 5.3 cm LV Systolic Diameter PLAX 2.5 cm IVS Diastolic Thickness 1.8 cm 0.6 - 1.0 / 0.6 - 0.9 cm LVPW Diastolic Thickness 1.4 cm 0.6 - 1.0 / 0.6 - 0.9 cm LV Relative Wall Thickness 1.0 RV Internal Dim ED PLAX 2.7 cm LA Volume 40.5 cm??? 18 - 58 / 22 - 52 cm??? LA Volume Index 18.2 cm???/m??? 16 - 28 cm???/m??? M-MODE Aortic Root Diameter MM 4.0 cm LA Systolic Diameter MM 3.5 cm LA Ao Ratio MM 0.9 DOPPLER AV Peak Velocity 156.0 cm/s AV Peak Gradient 9.7 mmHg AV Mean Velocity 111.8 cm/s AV Mean Gradient 5.5 mmHg AV Velocity Time Integral 27.2 cm AI Peak Velocity 416.3 cm/s AI Peak Gradient 69.3 mmHg AI Pressure Half Time 443.1 ms LVOT Peak Velocity 118.2 cm/s LVOT Peak Gradient 5.6 mmHg LVOT Velocity Time Integral 21.1 cm MV Area PHT 2.3 cm??? Mitral E Point Velocity 39.9 cm/s Mitral A Point Velocity 84.5 cm/s Mitral E to A Ratio 0.5 MV Deceleration Time 326.7 ms MV E' Velocity 5.8 cm/s Mitral E to MV E' Ratio 6.9 TR Peak Velocity 245.3 cm/s TR Peak Gradient 24.1 mmHg Right Ventricular Systolic Press 29.1 mmHg FINDINGS Left Ventricle Severely increased left ventricular wall thickness. Left ventricular cavity size normal. Normal left ventricular systolic function with no obvious regional wall motion abnormalities. Left ventricular ejection fraction is estimated at 55 %. Abnormal (paradoxical) septal motion consistent with postoperative state. Right Ventricle Normal right ventricular size and function. Right ventricular systolic pressure within normal limits. Right Atrium Normal right atrial size. Left Atrium Normal left atrial size. Mitral Valve Structurally normal mitral valve. Mild mitral annular calcification. Mild mitral regurgitation. Aortic Valve No aortic stenosis. Mild aortic regurgitation. Tricuspid Valve Structurally normal tricuspid valve. Mild tricuspid regurgitation. Pulmonic Valve Structurally normal pulmonic valve. Pericardium No pericardial effusion. Aorta Normal size aortic root and proximal ascending aorta. CONCLUSIONS Severely increased left ventricular wall thickness Left ventricular ejection fraction 55% Mild mitral regurgitation Mild tricuspid regurgitation No pericardial effusion Previewed by: Dr. Stevie Morgan DO (Electronically Signed) Final Date: 16 October 2023 11:49
--- NOTE | 2023-10-16 12:28 | P.PN ---
Subjective Progress Note Date: 10/16/23 Hospital Course: 83-year-old male with history of CAD status post CABG, hypertension, dyslipidemia, former smoker, gout presenting with 2 weeks of left-sided weakness. In the ED, temperature was 98, pulse 78, respiratory 16, blood pressure 132/80, saturating at 93% on room air. Chest x-ray independently interpreted, showed no opacities. EKG independently interpreted, shows normal sinus rhythm. CT head showed atrophy with chronic appearing periventricular white matter ischemic changes, no acute intracranial process noted. CT angiography did not show any flow-limiting stenosis. Patient admitted for acute/subacute CVA with left-sided deficits. Neurology consulted. MRI brain did not show any acute intracranial process. MRI cervical spine showed multilevel degenerative disc disease as well as central stenosis and neural foraminal encroachment mostly around C4-C6. Orthospine consulted. Subjective: Patient seen and examined at bedside. No acute events overnight. No new changes. Pertinent positives and negatives as discussed above, a complete review of systems was performed and all other systems are negative. Vitals Signs Reviewed. General: nontoxic, no distress, appears at stated age, obese Derm: warm, dry Head: atraumatic, normocephalic, symmetric Eyes: EOMI, no lid lag, anicteric sclera, pupils equal round reactive to light ENT: Nose and ears atraumatic Neck: No thyromegaly, supple Mouth: no lip lesion, mucus membranes moist Cardiovascular: S1S2 reg, no murmur, no edema Lungs: clear to auscultation bilateral, no rhonchi, no rales, no wheeze, no accessory muscle use Abdominal: soft, nontender to palpation, no guarding, no appreciable organomegaly Ext: no gross muscle atrophy Neuro: Left-sided sided facial droop, left upper and lower extremity strength 4/5 Psych: Alert, oriented, appropriate affect Data Reviewed Today: Pertinent Labs: No new labs Imaging: MRI brain did not show any acute intracranial process. MRI cervical spine showed multilevel degenerative disc disease as well as central stenosis and neural foraminal encroachment mostly around C4-C6. 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 Hypertension Dyslipidemia History of CAD status post CABG Former smoker Gout -Discussed management with neurology, concern for cervical spinal issue causing left hemiparesis, orthospine consulted, hold off any dual antiplatelet, continue aspirin 81 mg and Lipitor 40 mg daily -Neurochecks -Continuous telemetry Amlodipine 5 mg daily restarted -Continue home colchicine -PT/OT/speech therapy DVT ppx: Lovenox 40 Code status: Full code Anticipated discharge place: Pending clinical course Anticipated discharge time: Pending clinical course Objective - Vital Signs Vital signs: Vital Signs Temp 97.9 F 10/16/23 07:15 Pulse 69 10/16/23 11:05 Resp 17 10/16/23 11:05 BP 131/71 10/16/23 09:30 Pulse Ox 96 10/16/23 11:05 FiO2 - Labs CBC & Chem 7: 10/14/23 13:25 10/14/23 13:25
[2023-10-16] MEDS: SODIUM CHLORIDE 0.9% 1,000 ML IV SCH (13:39)
--- NOTE | 2023-10-16 13:39 | P.PN ---
Subjective Progress Note Date: 10/16/23 I am following-up with patient and he continues to have weakness over the left upper and lower extremity. Denies any new neurological issues. Objective - Vital Signs Vital signs: Vital Signs Temp 97.9 F 10/16/23 13:17 Pulse 67 10/16/23 13:17 Resp 18 10/16/23 13:17 BP 136/77 10/16/23 13:17 Pulse Ox 95 10/16/23 13:17 FiO2 - Exam GENERAL: The patient is sitting up in chair and is not in acute distress. HENT: Supple NEUROLOGICAL: Higher mental function: The patient is awake, alert, oriented to self, place and time. Patient is following commands. No aphasia and no neglect. Cranial nerves: The pupils are round, equal and reactive to light and accommodation. Visual [place] are full to confrontation throughout. Extraocular movement is intact no nystagmus is noted. Facial sensation is normal to touch throughout. The facial strength is normal throughout. Hearing is normal bilaterally to hand rub. Tongue is midline and moved [id number] without any difficulty. No dysarthria is noted. Shoulder shrug is normal bilaterally. Motor: The strength is left upper and lower extremity is 4 and has pronator drift over the left upper and drift low. Otherwise 5 over 5 throughout right. Normal tone and bulk. Cerebellum: Normal finger to nose bilaterally. Sensation: Decrease sensation to touch over the left side. Reflexes (right/left): 2+ throughout except ankle are 1+ Plantars are mute bilaterally. Some of the workup during his hospital visit consisted of: Vital B12 is 429 TSH is 3.24 Hemoglobin A1c is 5.8 Sodium is 140, calcium is 9.4, CK level is 144 Lipid panel triglycerides are 125, cholesterol 114, LDL is 52 and HDL is 36. Vitamin B12: 429 CT of the head is reported as atrophy with chronic appearing periventricular white matter ischemic change. Finding appear progressive from the comparison of 2020. No acute intracranial change radiographically apparent. Follow-up MRI can be performed as clinically indicated. I personally reviewed the CT of the head and I agree with the report. CTA head and neck: No flow limiting stenosis bilateral carotid bifurcation. Normal [facility] [place]. I personally reviewed the image and I felt there is a hyperintense in the cervical spine on the sagittal view around C4 and I'm not sure if this was artifact vs cervical lesion/myelomalacia. But feel more artifact since there is line going across it to his neck. MRI Brain is reported as age related atrophic and chronic small vessel ischemic change. No acute intracranial process at this time. No enhancing lesions seen. I personally reviewed MRI and agree with report. MRI Cervical spine: Reported as multilevel degenerative disc disease. Central stenosis and neuroforaminal stenosis as outline above. In body report mentioned C4-C5. I personally reviewed MRI and felt has singifianct stenosis if C4-C6 - Labs CBC & Chem 7: 10/14/23 13:25 10/14/23 13:25 Assessment and Plan Assessment: This is an 83-year-old gentleman who has been having weakness of the left upper and lower extremity and the questionable episode of left facial weakness and dysarthria in which about 2 weeks ago he felt his symptoms were worse. So far CT of the head CT angiography of the head and neck is negative for any acute process. I felt there is a questionable bright signal in the sagittal cervical but I felt was likely artifact Left hemiparesis for past two weeks and worsening: Likely due to cervical stenosis and seems worse in C4-C6. MRI Brain is negative for acute/subacute process. Questionable dysarthria and facial weakness. No stroke on MRI that is acute or subacute. I am not sure if truly has symptoms. Cannot rule out TIA. Plan: Patient is on aspirin 81 mg daily. We'll hold off dual antiplatelet for now and needs to be assess by Orthopedic surgery team. Continue Lipitor 40 mg daily. Orthopedic surgery team is consulted. Continue neuro checks Cardiac monitoring PT OT and EDITORIAL DIRECTOR are consulted We'll defer the rest of the medical management to primary team. For DVT prophylaxis will use SCDs for now until evaluated by Orthopedic from neurological perspective. Plan discussed with the patient and the primary attending The plan is discussed with patient and primary attending. Dr. Lei will resume neurology service on 10/18/2023 A.M. Time with Patient: Less than 30
[2023-10-17] MEDS: METOPROLOL SUCCINATE (ER) 100 MG TAB.ER.24H PO SCH (09:19)
[2023-10-17] MEDS: ENOXAPARIN 40 MG/0.4 ML SYRINGE SQ SCH (09:19)
[2023-10-17] MEDS: ASPIRIN 81 MG PO SCH (09:19)
[2023-10-17] MEDS: MULTIVITAMINS, THERA 1 EACH TAB PO SCH (09:19)
[2023-10-17] MEDS: ATORVASTATIN 40 MG TAB PO SCH (09:19)
[2023-10-17] MEDS: amLODIPine 5 MG TAB PO SCH (09:19)
[2023-10-17] MEDS: COLCHICINE 0.6 MG EACH PO SCH (09:20)
[2023-10-17] MEDS: NON FORMULARY DRUG (Omega-3/Dha/Epa/Fish Oil [Fish Oil 1,000 Mg Softgel] 1 EACH Capsule) PO SCH (10:22)
--- NOTE | 2023-10-17 11:18 | P.PN ---
Subjective Progress Note Date: 10/17/23 Hospital Course: 83-year-old male with history of CAD status post CABG, hypertension, dyslipidemia, former smoker, gout presenting with 2 weeks of left-sided weakness. In the ED, temperature was 98, pulse 78, respiratory 16, blood pressure 132/80, saturating at 93% on room air. Chest x-ray independently interpreted, showed no opacities. EKG independently interpreted, shows normal sinus rhythm. CT head showed atrophy with chronic appearing periventricular white matter ischemic changes, no acute intracranial process noted. CT angiography did not show any flow-limiting stenosis. Patient admitted for acute/subacute CVA with left-sided deficits. Neurology consulted. MRI brain did not show any acute intracranial process. MRI cervical spine showed multilevel degenerative disc disease as well as central stenosis and neural foraminal encroachment mostly around C4-C6. Echocardiogram shows LVEF 55% orthospine consulted. Subjective: Patient seen and examined at bedside. No acute events overnight. No new changes. Pertinent positives and negatives as discussed above, a complete review of systems was performed and all other systems are negative. Vitals Signs Reviewed. General: nontoxic, no distress, appears at stated age, obese Derm: warm, dry Head: atraumatic, normocephalic, symmetric Eyes: EOMI, no lid lag, anicteric sclera, pupils equal round reactive to light ENT: Nose and ears atraumatic Neck: No thyromegaly, supple Mouth: no lip lesion, mucus membranes moist Cardiovascular: S1S2 reg, no murmur, no edema Lungs: clear to auscultation bilateral, no rhonchi, no rales, no wheeze, no accessory muscle use Abdominal: soft, nontender to palpation, no guarding, no appreciable organomegaly Ext: no gross muscle atrophy Neuro: Left-sided sided facial droop, left upper and lower extremity strength 4/5 Psych: Alert, oriented, appropriate affect Data Reviewed Today: Pertinent Labs: No new labs Imaging: No new imaging Assessment and Plan: Left hemiparesis Cervical central canal stenosis with neural foraminal encroachment Hypertension Dyslipidemia History of CAD status post CABG Former smoker Gout -Neurology following, concern for cervical spinal issue causing left celestina paresis, orthospine consulted, hold off any dual antiplatelet, continue aspirin 81 mg and Lipitor 40 mg daily -Neurochecks -Continuous telemetry -Amlodipine 5 mg daily -Continue home colchicine -PT/OT/speech therapy DVT ppx: Lovenox 40 Code status: Full code Anticipated discharge place: Pending clinical course Anticipated discharge time: Pending clinical course Objective - Vital Signs Vital signs: Vital Signs Temp 98.1 F 10/17/23 08:00 Pulse 77 10/17/23 08:00 Resp 16 10/17/23 08:00 BP 146/85 10/17/23 08:00 Pulse Ox 95 10/17/23 08:00 FiO2 Intake & Output 10/16/23 10/17/23 10/17/23 18:59 06:59 18:59 Intake Total 540 10 240 Balance 540 10 240 Intake: IV 10 Invasive Line 1 10 Intake, IV Titration 60 Amount Sodium Chloride 0.9% 1, 60 000 ml @ 20 mls/hr IV . Q24H [facility] Rx#:[id number] Oral 480 240 Other: Voiding Method Toilet # Voids 1 2 1 # Bowel Movements 1 - Labs CBC & Chem 7: 10/14/23 13:25 10/14/23 13:25
--- NOTE | 2023-10-17 11:44 | P.CNOR ---
History of Present Illness - [facility] Consult date: 10/17/23 Requesting physician: Chaitanya Robbins Consult reason: other (left sided weakness, no evidence of stroke, likely spinal issue) History of present illness: History of Presenting Illness Patient is a pleasant 83-year-old male who presented to the hospital due to increased weakness and "stroke-like" symptoms. Patient reports approximately 2 weeks ago he had a sudden onset of left-sided facial drooping, slurring of words, left-sided upper and lower extremity weakness. Patient did not seek medical attention at that time. He felt his symptoms were not progressive enough. He states he felt his symptoms were improving but significantly worsene d 10/14/23, which prompted him to come to the hospital. Patient currently lives with his spouse. He states he is normally independent. Patient was admitted to [facility] for acute/subacute CVA with left-sided deficits. Neurology was consulted. Patient does have medical history of CAD with CABG, hypertension, dyslipidemia, former smoker, and gout. Patient denies any orthopedic history. Patient seen and examined this morning. Patient is resting comfortably in bed. Patient is alert and oriented x3. He continues to report and demonstrates left- sided weakness with numbness and tingling into the left upper extremity. Patient reports he has had intermittent neck pain with increased activity. Patient denies any fall or trauma. MRI results of the cervical spine has been discussed with patient with nonoperative and operative treatment options. Patient states he would like to discuss with his family and to speak with Dr. Rojas on what surgery will actually look like for him before making a decision, this is much appreciated and appropriate. MRI of the cervical spine taken on 10/15/23 demonstrates multilevel degenerative disc disease. C4-C5, C5-C6: Moderate disc desiccation of moderate broad-based posterior disc bulge. Posterior disc bulge which results in [id number] central stenosis. Bilateral right greater than left neural foraminal encroachment. C6-C7: Mild disc desiccation with posterior disc bulge. Effacement of ventral thecal sac. Moderate narrowing right neural foramen and mild narrowing left neural foramen. No evidence for central stenosis or disc he rniation. Review of Systems Pertinent positives and negatives as discussed in HPI, a complete review of systems was performed and all other systems are negative. Physical Examination General: The patient is awake and alert, in no acute distress Skin: Skin is warm and dry with no obvious rashes or lesions. Eye: Pupils are equal, round and reactive to light, extra-ocular movements are intact; there is normal conjunctiva bilaterally. Neck: The neck is supple, there is no tenderness and ROM intact. Cardiovascular: There is a regular rate and rhythm. No murmur, rub or gallop is appreciated. Respiratory: Respirations are non-labored, breath sounds are equal. Gastrointestinal: Soft, non-distended, non-tender abdomen. Back: There is no tenderness to palpation in the midline, paralumbar, paratho racic or buttocks region. There is no obvious deformity. Musculoskeletal: Right: Shoulder abduction 5/5, elbow flexors 5/5, wrist dorsiflexors 5/5. finger abductor 5/5, nylon mender 5/5, hip flexor 5/5, knee flexor 5/5, ankle dorsiflexor 5/5, ankle plantarflexion 5/5 and extensor hallucis 5/5. Left: Shoulder abduction 4-/5, elbow flexors 4-/5, wrist dorsiflexors 4-/5. finger abductor 4-/5, nylon mender 4-/5, hip flexor 4-/5, knee flexor 4-/5, ankle dorsiflexor 4-/5, ankle plantarflexion 4-/5 and extensor hallucis 4-/5. Neurological: CN 2-12 intact. Movement and coordination are diminished on the left side. Sensory exam to light touch intact C5-T1 and intact from L2-S1. Reflexes 2/4 in bilateral upper and lower extremities. Negative Hoffmans, babinski, and clonus signs. Psychiatric: Cooperative, appropriate mood & affect, normal judgment. Assessment and Plan Cervcial spondylosis with central canal stenosis Left upper extremity radiculopathy Left upper extremity weakness Left lower extremity weakness At this time we recommend conservative treatment. We discussed possible surgical intervention of the cervical spine and patient would like to speak with his family and with my attending Dr. Rojas tomorrow 10/18/23. Patient declines any further treatment at this time. We will continue to follow patient during his stay. 2. Appreciate medical management 3. Pain management - Patient may benefit from a trial of steroids, Patient states he would not like to start today. 4. GI prophylaxis - per medicine 5. DVT prophylaxis - Lovenox 6. PT/OT - weightbearing as tolerated with a walker as needed. 7. Appreciate consult I reviewed and discussed this case with my attending Dr. Rojas, whom has reviewed this chart and films and is in agreement with assessment and plan of care as outlined above. I have personally seen and examined the patient, performed the documentation and the assessment and plan as written. Number of minutes spent on the visit: 20m. Past Medical History Past Medical History: Coronary Artery Disease (CAD), GERD/Reflux, Hypertension, Pneumonia Additional Past Medical History / Comment(s): injured left foot- has boot on, hx ulcer, abdominal pain, hx ulcer History of Any Multi-Drug Resistant Organisms: None Reported Past Surgical History: Appendectomy, Coronary Bypass/CABG, Heart Catheterization Additional Past Surgical History / Comment(s): CABG 2001, Past Anesthesia/Blood Transfusion Reactions: No Reported Reaction Past Psychological History: No Psychological Hx Reported Smoking Status: Never smoker Past Alcohol Use History: Rare Past Drug Use History: None Reported - Past Family History Mother Family Medical History: Cancer Medications and Allergies Home Medications Medication Instructions Recorded Confirmed Type Metoprolol Succinate [Toprol XL] 100 mg PO DAILY 07/03/14 10/14/23 History Rosuvastatin Calcium [Crestor] 20 mg PO DAILY 07/03/14 10/14/23 History Fluticasone Nasal [place] [Flonase 1 spr EA NOSTRIL BID 04/29/21 10/14/23 History Nasal [place]] Nitroglycerin Sl Tabs [Nitrostat] 0.4 mg SL Q5M PRN 04/29/21 10/14/23 History amLODIPine [Norvasc] 5 mg PO DAILY 04/29/21 10/14/23 History Ascorbic Acid [Vitamin C] 1,000 mg PO DAILY 10/14/23 10/14/23 History Aspirin EC [Ecotrin Low Dose] 81 mg PO DAILY 10/14/23 10/14/23 History Cholecalciferol [Vitamin D3 (25 75 mcg PO DAILY 10/14/23 10/14/23 History Mcg = 1000 Iu)] Colchicine [Colcrys] 0.6 mg PO DAILY 10/14/23 10/14/23 History Multivitamins, Thera [Multivitamin 1 tab PO DAILY 10/14/23 10/14/23 History (formulary)] Marble-3/Dha/Epa/Fish Oil [Fish Oil 1 cap PO DAILY 10/14/23 10/14/23 History 1,000 mg Softgel] Allergies Allergy/AdvReac Type Severity Reaction Status Date / Time cat dander Allergy Allergy Verified 10/14/23 13:58 testing grass pollen Allergy Allergy Verified 10/14/23 13:58 testing tree and shrub pollen Allergy Allergy Verified 10/14/23 13:58 testing Penicillins AdvReac Rash/Hives Verified 10/14/23 13:58 BIRDS Allergy Allergy Uncoded 04/29/21 16:15 testing Results - Labs Labs: H & H 10/14/23 Range/Units 13:25 Hgb 16.2 (13.0-17.5) gm/dL Hct 49.8 (39.0-53.0) % Coagulation 10/14/23 Range/Units 13:25 INR 1.0 (<1.2) Result Diagrams: 10/14/23 13:25 10/14/23 13:25
--- NOTE | 2023-10-17 12:34 | P.PN ---
Subjective Progress Note Date: 10/17/23 I am following-up with patient and he feels about the same. Continues to have weakness over the left side. Objective - Vital Signs Vital signs: Vital Signs Temp 98.1 F 10/17/23 11:40 Pulse 65 10/17/23 11:40 Resp 16 10/17/23 11:40 BP 138/81 10/17/23 11:40 Pulse Ox 95 10/17/23 11:40 FiO2 Intake & Output 10/16/23 10/17/23 10/17/23 18:59 06:59 18:59 Intake Total 540 10 240 Balance 540 10 240 Intake: IV 10 Invasive Line 1 10 Intake, IV Titration 60 Amount Sodium Chloride 0.9% 1, 60 000 ml @ 20 mls/hr IV . Q24H [facility] Rx#:[id number] Oral 480 240 Other: Voiding Method Toilet # Voids 1 2 1 # Bowel Movements 1 - Exam GENERAL: The patient is sitting up in chair and is not in acute distress. HENT: Supple NEUROLOGICAL: Higher mental function: The patient is awake, alert, oriented to self, place and time. Patient is following commands. No aphasia and no neglect. Cranial nerves: The pupils are round, equal and reactive to light and accommodation. Visual [place] are full to confrontation throughout. Extraocular movement is intact no nystagmus is noted. Facial sensation is normal to touch throughout. The facial strength is normal throughout. Hearing is normal bilaterally to hand rub. Tongue is midline and moved [id number] without any difficulty. No dysarthria is noted. Shoulder shrug is normal bilaterally. Motor: The strength is left upper and lower extremity is 4 and has pronator drift over the left upper and drift low. Otherwise 5 over 5 throughout right. Normal tone and bulk. Cerebellum: Normal finger to nose bilaterally. Sensation: Decrease sensation to touch over the left side. Reflexes (right/left): 2+ throughout except ankle are 1+ Plantars are mute bilaterally. Some of the workup during his hospital visit consisted of: Vital B12 is 429 TSH is 3.24 Hemoglobin A1c is 5.8 Sodium is 140, calcium is 9.4, CK level is 144 Lipid panel triglycerides are 125, cholesterol 114, LDL is 52 and HDL is 36. Vitamin B12: 429 CT of the head is reported as atrophy with chronic appearing periventricular white matter ischemic change. Finding appear progressive from the comparison of 2020. No acute intracranial change radiographically apparent. Follow-up MRI can be performed as clinically indicated. I personally reviewed the CT of the head and I agree with the report. CTA head and neck: No flow limiting stenosis bilateral carotid bifurcation. Normal [place]. I personally reviewed the image and I felt there is a hyperintense in the cervical spine on the sagittal view around C4 and I'm not sure if this was artifact vs cervical lesion/myelomalacia. But feel more artifact since there is line going across it to his neck. MRI Brain is reported as age related atrophic and chronic small vessel ischemic change. No acute intracranial process at this time. No enhancing lesions seen. I personally reviewed MRI and agree with report. MRI Cervical spine: Reported as multilevel degenerative disc disease. Central stenosis and neuroforaminal stenosis as outline above. In body report mentioned C4-C5. I personally reviewed MRI and felt has singifianct stenosis if C4-C6 - Labs CBC & Chem 7: 10/14/23 13:25 10/14/23 13:25 Assessment and Plan Assessment: This is an 83-year-old gentleman who has been having weakness of the left upper and lower extremity and the questionable episode of left facial weakness and dysarthria in which about 2 weeks ago he felt his symptoms were worse. So far CT of the head CT angiography of the head and neck is negative for any acute process. I felt there is a questionable bright signal in the sagittal cervical but I felt was likely artifact Left hemiparesis for past two weeks and worsening: Likely due to cervical stenosis and seems worse in C4-C6. MRI Brain is negative for acute/subacute process. Questionable dysarthria and facial weakness. No stroke on MRI that is acute or subacute. I am not sure if truly has symptoms. Cannot rule out TIA. Plan: Patient is on aspirin 81 mg daily. We'll hold off dual antiplatelet for now and needs to be assess by Orthopedic surgery team. Continue Lipitor 40 mg daily. Orthopedic surgery team is consulted. I spoke with N.P. and they feel he is a possible surgical candidate for cervical intervention. They will consider also steroids. Continue neuro checks Cardiac monitoring PT OT and HEARING IMP[employer] TEACHER are consulted We'll defer the rest of the medical management to primary team. For DVT prophylaxis will use SCDs for now until evaluated by Orthopedic from neurological perspective. Plan discussed with the patient and the primary attending The plan is discussed with patient and primary attending. Dr. Lei will resume neurology service tomorrow A.M. Time with Patient: Less than 30
[2023-10-17] MEDS: SODIUM CHLORIDE 0.9% 1,000 ML IV SCH (16:55)
[2023-10-18] MEDS: NON FORMULARY DRUG (Omega-3/Dha/Epa/Fish Oil [Fish Oil 1,000 Mg Softgel] 1 EACH Capsule) PO SCH (08:55)
[2023-10-18] MEDS: METOPROLOL SUCCINATE (ER) 100 MG TAB.ER.24H PO SCH (08:56)
[2023-10-18] MEDS: ATORVASTATIN 40 MG TAB PO SCH (08:56)
[2023-10-18] MEDS: COLCHICINE 0.6 MG EACH PO SCH (08:56)
[2023-10-18] MEDS: ENOXAPARIN 40 MG/0.4 ML SYRINGE SQ SCH (08:56)
[2023-10-18] MEDS: MULTIVITAMINS, THERA 1 EACH TAB PO SCH (08:56)
[2023-10-18] MEDS: amLODIPine 5 MG TAB PO SCH (08:56)
[2023-10-18] MEDS: ASPIRIN 81 MG PO SCH (08:56)
--- NOTE | 2023-10-18 10:41 | P.PN ---
Subjective Progress Note Date: 10/18/23 Principal diagnosis: Cervcial spondylosis with central canal stenosis Left upper extremity radiculopathy Left upper extremity weakness Left lower extremity weakness Patient was seen at bedside this morning sitting up in chair with legs elevated. Patient states he is planning to go home today. Patient denies any current significant weakness in the upper extremities. Patient says since she came in the hospital following that he may have had a stroke but all the scans were negative for TIAs. Patient says he has been working with therapy daily. Patient denies any other issues at this time. Dr. Rojas was at bedside during encounter and did discuss possible treatment with patient. Patient denies chest pain, fever, shortness of breath, nausea, vomiting, loss of bowel/bladder control. Objective - Vital Signs Vital signs: Vital Signs Temp 98.1 F 10/18/23 08:55 Pulse 82 10/18/23 08:55 Resp 17 10/18/23 08:55 BP 145/81 10/18/23 08:55 Pulse Ox 93 L 10/18/23 08:55 FiO2 21 10/18/23 08:21 Intake & Output 10/17/23 10/18/23 10/18/23 18:59 06:59 18:59 Intake Total 600 240 Balance 600 240 Intake: Oral 600 240 Other: Voiding Method Toilet Toilet Toilet # Voids 2 3 - Exam Negative for any open fractures, significant erythema or ecchymosis. Sensation is equal, symmetric, bilaterally intact throughout the upper and lower extremities. There is tenderness to palpation over the posterior cervical spine and midline. There also is some generalized tenderness to patient the paralumba r region. Patient does have full range of motion throughout bilateral upper extremities on exam.4-/5 in all major motor groups in left upper extremity. 4+/5 in all major motor groups in right upper extremity. 4+/5 in all major motor groups in bilateral lower extremities. Radial pulses intact, 2+ bilaterally. Cap refill under 3 seconds in digits of upper extremities. Negative Nena bilaterally. Negative clonus bilaterally. Negative Homans bilaterally. - Labs CBC & Chem 7: 10/14/23 13:25 10/14/23 13:25 Assessment and Plan Assessment: Cervcial spondylosis with central canal stenosis Left upper extremity radiculopathy Left upper extremity weakness Left lower extremity weakness Plan: 1. Cervcial spondylosis with central canal stenosis; left upper extremity radiculopathy; weakness - MRI of the cervical spine does reveal some mild to moderate stenosis centrally. I did discuss the findings of the imaging with my attending, Dr. Rojas. At this time we're recommending conservative treatment with pain medication and steroids. We do recommend patient to see Dr. Rojas in office in 1-2 weeks for follow-up. Patient is stable from ortho pedic standpoint for discharge. At this time, orthopedics is signing off. Please do not hesitate to contact us for any further questions. 2. Appreciate medical management 3. Pain management recs 4. DVT prophylaxis - aspirin; Lovenox 5. GI prophylaxis recs 6. PT/OT - weightbearing as tolerated with walker and assistance as needed 7. Encourage incentive spirometer use
[2023-10-18 10:46] VITALS: RESP 17; TEMP 98.1
--- NOTE | 2023-10-18 11:32 | P.PN ---
Subjective Progress Note Date: 10/18/23 Discharge Diagnosis: Left hemiparesis Cervical central canal stenosis with neural foraminal encroachment Hypertension Dyslipidemia History of CAD status post CABG Former smoker Gout Hospital Course: 83-year-old male with history of CAD status post CABG, hypertension, dyslipidemia, former smoker, gout presenting with 2 weeks of left-sided weakness. In the ED, temperature was 98, pulse 78, respiratory 16, blood pressure 132/80, saturating at 93% on room air. Chest x-ray independently interpreted, showed no opacities. EKG independently interpreted, shows normal sinus rhythm. CT head showed atrophy with chronic appearing periventricular white matter ischemic changes, no acute intracranial process noted. CT angiography did not show any flow-limiting stenosis. Patient admitted for left hemiparesis. Neurology consulted. MRI brain did not show any acute intracranial process. MRI cervical spine showed multilevel degenerative disc disease as well as central stenosis and neural foraminal encroachment mostly around C4-C6. Echocardiogram shows LVEF 55%. Orthospine consulted. Follow-up outpatient. Patient given Medrol Dosepak. Patient being discharged home. Patient seen and examined at bedside. Vital signs reviewed and stable. General: nontoxic, no distress, appears at stated age, obese Derm: warm, dry Head: atraumatic, normocephalic, symmetric Eyes: EOMI, no lid lag, anicteric sclera, pupils equal round reactive to light ENT: Nose and ears atraumatic Neck: No thyromegaly, supple Mouth: no lip lesion, mucus membranes moist Cardiovascular: S1S2 reg, no murmur, no edema Lungs: clear to auscultation bilateral, no rhonchi, no rales, no wheeze, no accessory muscle use Abdominal: soft, nontender to palpation, no guarding, no appreciable organomegaly Ext: no gross muscle atrophy Neuro: left upper and lower extremity strength 4/5 Psych: Alert, oriented, appropriate affect A total of 33 minutes of time were spent preparing this complex discharge summary. Patient was discharged on 10/18/2023 at 11: 31. Objective - Vital Signs Vital signs: Vital Signs Temp 98.4 F 10/18/23 04:00 Pulse 76 10/18/23 04:00 Resp 16 10/18/23 04:00 BP 139/80 10/18/23 04:00 Pulse Ox 94 L 10/18/23 08:21 FiO2 21 10/18/23 08:21 Intake & Output 10/17/23 10/18/23 10/18/23 18:59 06:59 18:59 Intake Total 600 240 Balance 600 240 Intake: Oral 600 240 Other: Voiding Method Toilet Toilet # Voids 2 3 - Labs CBC & Chem 7: 10/14/23 13:25 10/14/23 13:25
--- NOTE | 2023-10-18 11:33 | P.DS ---
Providers Date of admission: 10/14/23 15:02 Expected date of discharge: 10/18/23 Attending physician: Chaitanya Robbins MD Consults: 10/14/23 15:01 Consult Physician Routine Consulting Provider: Ilia Hawkins Consult Reason/Comments: cva Do you want consulting provider notified?: Yes 10/16/23 10:55 Consult Physician Routine Consulting Provider: Celso Rojas Consult Reason/Comments: left sided weakness, no evidence of stroke, likely spinal issue Do you want consulting provider notified?: Yes Primary care physician: Rebel Pascual Hospital Course: Discharge Diagnosis: Left hemiparesis Cervical central canal stenosis with neural foraminal encroachment Hypertension Dyslipidemia History of CAD status post CABG Former smoker Gout Hospital Course: 83-year-old male with history of CAD status post CABG, hypertension, dyslipidemia, former smoker, gout presenting with 2 weeks of left-sided weakness. In the ED, temperature was 98, pulse 78, respiratory 16, blood p ressure 132/80, saturating at 93% on room air. Chest x-ray independently interpreted, showed no opacities. EKG independently interpreted, shows normal sinus rhythm. CT head showed atrophy with chronic appearing periventricular white matter ischemic changes, no acute intracranial process noted. CT angiography did not show any flow-limiting stenosis. Patient admitted for left hemiparesis. Neurology consulted. MRI brain did not show any acute intracranial process. MRI cervical spine showed multilevel degenerative disc disease as well as central stenosis and neural foraminal encroachment mostly around C4-C6. Echocardiogram shows LVEF 55%. [facility]ospine consulted. Follow-up outpatient. Patient given Medrol Dosepak. Patient being discharged home. Patient seen and examined at bedside. Vital signs reviewed and stable. General: nontoxic, no distress, appears at stated age, obese Derm: warm, dry Head: atraumatic, normocephalic, symmetric Eyes: EOMI, no lid lag, anicteric sclera, pupils equal round reactive to light ENT: Nose and ears atraumatic Neck: No thyromegaly, supple Mouth: no lip lesion, mucus membranes moist Cardiovascular: S1S2 reg, no murmur, no edema Lungs: clear to auscultation bilateral, no rhonchi, no rales, no wheeze, no accessory muscle use Abdominal: soft, nontender to palpation, no guarding, no appreciable organomegaly Ext: no gross muscle atrophy Neuro: left upper and lower extremity strength 12/16 Psych: Alert, oriented, appropriate affect A total of 33 minutes of time were spent preparing this complex discharge summary. Patient was discharged on 10/18/2023 at 11: 31. Patient Condition at Discharge: Stable Plan - Discharge Summary New Discharge Prescriptions: New methylPREDNISolone Dose Pack [Medrol Dose Pack] 4 mg PO DIRECTED #21 tab Continue Rosuvastatin Calcium [Crestor] 20 mg PO DAILY Metoprolol Succinate [Toprol XL] 100 mg PO DAILY Nitroglycerin Sl Tabs [Nitrostat] 0.4 mg SL Q5M PRN PRN Reason: Chest Pain Multivitamins, Thera [Multivitamin (formulary)] 1 tab PO DAILY Ascorbic Acid [Vitamin C] 1,000 mg PO DAILY Colchicine [Colcrys] 0.6 mg PO DAILY Aspirin EC [Ecotrin Low Dose] 81 mg PO DAILY Fluticasone Nasal [place] [Flonase Nasal [place]] 1 spr EA NOSTRIL BID amLODIPine [Norvasc] 5 mg PO DAILY Cholecalciferol [Vitamin D3 (25 Mcg = 1000 Iu)] 75 mcg PO DAILY Avant-3/Dha/Epa/Fish Oil [Fish Oil 1,000 mg Softgel] 1 cap PO DAILY Discharge Medication List Metoprolol Succinate [Toprol XL] 100 mg PO DAILY 07/03/14 [History] Rosuvastatin Calcium [Crestor] 20 mg PO DAILY 07/03/14 [History] Fluticasone Nasal [place] [Flonase Nasal [place]] 1 spr EA NOSTRIL BID 04/29/21 [History] Nitroglycerin Sl Tabs [Nitrostat] 0.4 mg SL Q5M PRN 04/29/21 [History] amLODIPine [Norvasc] 5 mg PO DAILY 04/29/21 [History] Ascorbic Acid [Vitamin C] 1,000 mg PO DAILY 10/14/23 [History] Aspirin EC [Ecotrin Low Dose] 81 mg PO DAILY 10/14/23 [History] Cholecalciferol [Vitamin D3 (25 Mcg = 1000 Iu)] 75 mcg PO DAILY 10/14/23 [History] Colchicine [Colcrys] 0.6 mg PO DAILY 10/14/23 [History] Multivitamins, Thera [Multivitamin (formulary)] 1 tab PO DAILY 10/14/23 [History] Avant-3/Dha/Epa/Fish Oil [Fish Oil 1,000 mg Softgel] 1 cap PO DAILY 10/14/23 [History] methylPREDNISolone Dose Pack [Medrol Dose Pack] 4 mg PO DIRECTED #21 tab 10/18/23 [Rx] Follow up Appointment(s)/Referral(s): Delio Pascual MD [Primary Care Provider] - 1-2 days Celso Rojas DO [Doctor of Osteopathic Medicine] - 10 Days Patient Instructions/Handouts: Cervical Spinal Stenosis (DC) Activity/Diet/Wound Care/Special Instructions: Please see orthospine surgery. Discharge Disposition: HOME SELF-CARE
[2023-10-18 12:42] VITALS: BP 138/86; PULSE 63
== END 2023-10-18 14:13 | disposition home or self-care (01) | DRG 552 ==
LOC: EC 13:04 → 3SCARD 15:02
PROVIDERS: ADMIT Student in an Organized Health Care Education/Training Program; ATTEND Student in an Organized Health Care Education/Training Program
DX: M48.02 Spinal stenosis, cervical region (principal); G81.94 Hemiplegia, unspecified affecting left nondominant side; E78.5 Hyperlipidemia, unspecified; M10.9 Gout, unspecified; I25.10 Atherosclerotic heart disease of native coronary artery without angina pectoris; I10 Essential (primary) hypertension; M47.9 Spondylosis, unspecified; M47.22 Other spondylosis with radiculopathy, cervical region; Z95.1 Presence of aortocoronary bypass graft; Z87.891 Personal history of nicotine dependence; M50.30 Other cervical disc degeneration, unspecified cervical region; Z79.82 Long term (current) use of aspirin; Z79.899 Other long term (current) drug therapy; Z88.0 Allergy status to penicillin
CPT/HCPCS: 36415; 70450; 70496; 70498; 70551; 71046; 72156; 80053; 80061; 82550; 82607; 83036; 84443; 84484; 85025; 85610; 85730; 93005; 93306; 94760; 96372; 99285

== ENCOUNTER 2024-12-20 05:42 | Day surgery (SDC) | payer MEDICARE ==
[~2024-12-20 05:42] MED LIST: LACTATED RINGERS 1,000 ML IV SCH
[2024-12-20 06:16] VITALS: TEMP 97
[2024-12-20] MEDS: IV FLUID CONTINUATION 1,000 ML IV ONE ×2 (06:18→06:59)
[2024-12-20 06:31] LABS: Glucose,Whole Blood 110 mg/dL (70-110)
[2024-12-20] MEDS ORDERED: PROPOFOL 10 MG/ML 20 ML VIAL IV ONE (07:02)
[2024-12-20] MEDS ORDERED: LIDOCAINE HCL/PF 20 MG/ML 10 ML AMP ONE (07:02)
--- NOTE | 2024-12-20 07:21 | P.PCN ---
Date of Procedure: 12/20/24 Procedure(s) Performed: Brief history: Patient is a pleasant 84-year-old white female scheduled for an elective upper endoscopy as well as colonoscopy as a part of evaluation of intermittent dysphagia to solids and abdominal CAT scan that showed thickening of the ascending colon Procedure performed: Esophagogastroduodenoscopy Colonoscopy Preoperative diagnosis: Intermittent dysphagia to solids Abnormal CAT scan showing thickening of the right colon Anesthesia: [facility] [place] Procedure: After informed consent was obtained from the patient was brought into the endoscopy unit and IV sedation was administered by anesthesia under continuous monitoring. Initially upper endoscopy was done. The Olympus GF 160 video endoscope was inserted inserted into the mouth and esophagus intubated without any difficulty and was gradually advanced into the stomach and duodenum and carefully examined. The bulb and second part of the duodenum appeared normal. The scope was then withdrawn into the stomach adequately insufflated with air and upon careful examination the antrum had mild gastritis and biopsies were done from this area. Mucosa of the body, cardia and fundus appeared normal. The scope was then withdrawn into the esophagus. The GE junction was located at 40 cm to the incisors. It appeared regular with no erythema erosions or ulcerations. Rest of the esophagus appeared normal. Patient tolerated the procedure well. At this time the patient continued to remain sedation. Initial digital rectal examination was normal. Olympus CF 160 video colonoscope was then inserted into the rectum and gradually advanced to the cecum without any difficulty. Careful examination was performed as the scope was gradually being withdrawn. The prep was excellent. The cecum, ascending colon, transverse colon, descending colon, sigmoid colon and rectum appeared normal. Scattered sigmoid diverticulosis. Retroflexion was performed in the rectum and small internal hemorrhoids were noted. Patient tolerated the procedure well. Impression: 1. Upper endoscopy revealed mild antral gastritis but no evidence of esophagitis or esophageal stricture 2. Colonoscopy revealed scattered sigmoid diverticulosis and small internal hemorrhoids Recommendations: Findings of this examination were discussed with the patient as well as his family. He was advised to follow-up with the biopsy results. Continue with a high-fiber diet and fiber supplements on a regular basis.
[2024-12-20 07:30] VITALS: RESP 16
[2024-12-20 07:47] VITALS: BP 128/76; PULSE 70
== END 2024-12-20 08:20 | disposition home or self-care (01) ==
LOC: ORWHC2ENDO 05:42
PROVIDERS: ATTEND Internal Medicine Gastroenterology
DX: R13.19 Other dysphagia (principal); K63.89 Other specified diseases of intestine; K29.50 Unspecified chronic gastritis without bleeding; K57.30 Diverticulosis of large intestine without perforation or abscess without bleeding; K64.8 Other hemorrhoids; R13.10 Dysphagia, unspecified
CPT/HCPCS: 45378; 43239; J2003; J2704; 88305